=== PATIENT | female | born 1985 | race Caucasian/White ===

== ENCOUNTER → 2018-05-08 | Outpatient (REF) | payer BC | LOC: M LAB REF 17:18 | DX: R30.0 Dysuria (principal) | CPT/HCPCS: 87088; 87186 ==

== ENCOUNTER → 2018-07-17 | Outpatient (REF) | payer BC ==
[2018-07-17 21:09] LABS: HEMATOCRIT 37.2 % (36.0-47.0); HEMOGLOBIN 12.3 g/dl (12.0-15.5); MEAN CORPUSCULAR HEMOGLOBIN 28.8 pg (27.0-33.0); MEAN CORPUSCULAR HGB CONC 33.1 g/dl (32.0-36.5); MEAN CORPUSCULAR VOLUME 87.1 fl (80.0-96.0); PLATELET COUNT, AUTOMATED 331 10^3/uL (150-450); RED BLOOD COUNT 4.27 10^6/uL (4.00-5.40); WHITE BLOOD COUNT 9.7 10^3/uL (4.0-10.0)
[2018-07-18 10:37] LABS: HCG, SERUM QUANTITATIVE 19747 MIU/ML; HEPATITIS C VIRUS ABY INDEX 0.1 INDEX (<0.8); HIV 1&2 SCREEN CENTAUR NEGATIVE (NEGATIVE); RUBELLA IgG QUALITATIVE IMMUNE (IMMUNE)
== END ==
LOC: M LAB REF 16:46
PROVIDERS: ATTEND Obstetrics & Gynecology
DX: Z32.01 Encounter for pregnancy test, result positive (principal); O36.80X0 Pregnancy with inconclusive fetal viability, not applicable or unspecified

== ENCOUNTER 2018-10-12 07:00 | Day surgery (SDC) | payer BC ==
[~2018-10-12] VITALS: Ht 180.3 cm; Wt 93.0 kg
[~2018-10-12 07:00] MED LIST: PRENTAB55 PO
[2018-10-12 07:27] LABS: HEMATOCRIT 38.9 % (36.0-47.0); MEAN CORPUSCULAR HEMOGLOBIN 29.7 pg (27.0-33.0); MEAN CORPUSCULAR HGB CONC 33.4 g/dl (32.0-36.5); PLATELET COUNT, AUTOMATED 261 10^3/uL (150-450); RED BLOOD COUNT 4.37 10^6/uL (4.00-5.40); WHITE BLOOD COUNT 6.8 10^3/uL (4.0-10.0)
[2018-10-12] MEDS ORDERED: LR 1,000 ML IV ONE (07:30)
[2018-10-12] MEDS ORDERED: ceFAZolin SOD 1 GM in D5W MINI-BAG PLUS 50 ML IV ONE (07:30)
[2018-10-12] MEDS ORDERED: PROPOFOL 200 MG/20 ML VIAL As Ordered ONE (07:57)
[2018-10-12] MEDS ORDERED: fentaNYL 100 MCG/2 ML INJECTION (J3010) As Ordered ONE (07:57)
[2018-10-12] MEDS ORDERED: LIDOCAINE 2% INJ 100 MG/5 ML SDV (FOR ANES.) As Ordered ONE (07:57)
[2018-10-12] MEDS ORDERED: MIDAZOLAM INJ 2 MG/2 ML VIAL (J2250) As Ordered ONE (07:58)
[2018-10-12] MEDS ORDERED: LIDOCAINE W/EPINEPHRINE 1% 20ML VIAL As Ordered ONE (08:11)
[2018-10-12] MEDS ORDERED: dexameTHASONE 4 MG/ML 1ML VIAL (J1100) As Ordered ONE (08:30)
[2018-10-12] MEDS ORDERED: ACETAMINOPHEN 1000MG 100ML IV BTL (OFIRMEV) (J0131 PER 10MG) As Ordered ONE (08:31)
[2018-10-12] MEDS ORDERED: KETOROLAC 60 MG/2 ML VIAL (J1885) As Ordered ONE ×2 (08:39→09:13)
[2018-10-12] MEDS ORDERED: ONDANSETRON 4MG/2ML VIAL (J2405) As Ordered ONE (08:39)
[2018-10-12] MEDS ORDERED: METOCLOPRAMIDE INJ 10MG/2ML VIAL (J2765) As Ordered ONE (08:48)
[2018-10-12] MEDS ORDERED: OXYTOCIN INJ 10 UNITS/ML VIAL (J2590) As Ordered ONE ×2 (08:51→08:52)
[2018-10-12] MEDS ORDERED: METHYLERGONOVINE MALEATE 0.2 MG/ML VIAL (J2210) As Ordered ONE (08:52)
[2018-10-12] MEDS ORDERED: ePHEDrine SULFATE 25 MG/5 ML(5MG/ML) SYRINGE As Ordered ONE (09:00)
[2018-10-12] MEDS ORDERED: PERC5TAB12 PO (09:18)
[2018-10-12] MEDS ORDERED: IBUP80TA PO (09:18)
[2018-10-12] MEDS ORDERED: METH0.2T53 PO (09:18)
[2018-10-12] MEDS ORDERED: METHYLERGONOVINE MALEATE 0.2 MG/ML VIAL (J2210) IM ONE (09:45)
[2018-10-12] MEDS ORDERED: RHOGAM 300 MCG (1500 IU) INJ (J2790) IM ONE (09:45)
[2018-10-12] MEDS ORDERED: PERCOCET 5MG/325MG TAB PO PRN ×2 (09:45→10:00)
--- NOTE | 2018-10-12 09:51 | RO ---
DATE OF PROCEDURE: 10/12/2018 Ronel is a 33-year-old female 2, para 1 who is approximately 14 weeks gestation, was found to have missed on ultrasound. After counseling in the office, a decision was made to proceed with suction, dilatation and evacuation. PREOPERATIVE DIAGNOSIS: 1. Missed at 14 weeks. POSTOPERATIVE DIAGNOSES: 1. Missed at 14 weeks. 2. Necrotic products of conception. PROCEDURE: 1. Suction, dilatation and evacuation. ANESTHESIA: General. SURGEON: Dr. Donnie Wilson. COMPLICATIONS: None. ESTIMATED BLOOD LOSS: Approximately 600 mL. SPECIMEN SENT TO THE LAB: Products of conception as well as parts. 30 mL of Pitocin was placed in approximately 500 mL of normal saline and infused right after the D C. After obtaining informed consent, the patient was taken to the operating room where general anesthetic was found to be adequate. She was then draped and prepped in the usual sterile fashion in the dorsal lithotomy position. At this point, a straight catheter bladder was performed for approximately 110 mL of clear urine. We then placed a weighted speculum in the posterior fornix of the vagina. The patient was given Cytotec the night before the surgery. The cervix was found to be somewhat dilated. At this point, a 10 mm suction curette was inserted. The amniotic fluid as well as some membranes were removed. We then used a long, ring forceps and multiple products of conception as well as parts were removed. The suction device was reinserted and reactivated and cleared the debris. We then proceeded to do a sharp curettage of the endometrial lining. The suction device was reinserted and the endometrial cavity cleared. Pitocin was given to help with hemostasis. Good hemostasis noted. Fundal massage as well as bimanual massage was done. Good hemostasis noted. All instruments removed. The patient tolerated the procedure well. She was then transferred to recovery room in stable condition.
[2018-10-12] MEDS ORDERED: ONDANSETRON 4MG/2ML VIAL (J2405) IV PRN (10:00)
[2018-10-12] MEDS ORDERED: MEPERIDINE INJ 25 MG/ML VIAL (J2175) IV PRN (10:00)
[2018-10-12] MEDS ORDERED: LR 1,000 ML IV SCH (10:00)
[2018-10-12] MEDS ORDERED: METOCLOPRAMIDE INJ 10MG/2ML VIAL (J2765) IV PRN (10:00)
[2018-10-12] MEDS ORDERED: fentaNYL 100 MCG/2 ML INJECTION (J3010) IV PRN (10:00)
[2018-10-12 11:35] VITALS: BP 114/71
[2018-10-12] MEDS ORDERED: IBUPROFEN 800 MG TAB PO SCH (15:00)
== END 2018-10-12 12:05 | disposition home or self-care (01) ==
LOC: M SDC 07:00
PROVIDERS: ATTEND Obstetrics & Gynecology
DX: O02.1 Missed abortion (principal); Z88.7 Allergy status to serum and vaccine
CPT/HCPCS: 36415; 59820; 85027; 86850; 86900; 86901; 88305; J0131; J0690; J1100; J1885; J2210; J2250; J2405; J2590; J2765; J2790; J3010

== ENCOUNTER → 2019-03-21 | Outpatient (REF) | payer BC ==
[~2019-03-21] MED LIST changes: +IBUP80TA PO; +METH0.2T53 PO; +PERC5TAB12 PO
[2019-03-21 18:41] LABS: HEMATOCRIT 39.2 % (36.0-47.0); HEMOGLOBIN 13.1 g/dl (12.0-15.5); MEAN CORPUSCULAR HEMOGLOBIN 29.8 pg (27.0-33.0); MEAN CORPUSCULAR HGB CONC 33.4 g/dl (32.0-36.5); MEAN CORPUSCULAR VOLUME 89.1 fl (80.0-96.0); PLATELET COUNT, AUTOMATED 259 10^3/uL (150-450); WHITE BLOOD COUNT 9.1 10^3/uL (4.0-10.0)
[2019-03-21 21:40] LABS: HCG, SERUM QUANTITATIVE 8509 MIU/ML
[2019-03-22 10:17] LABS: RUBELLA IgG QUALITATIVE IMMUNE (IMMUNE)
[2019-03-22 10:46] LABS: HEPATITIS C VIRUS ABY INDEX 0.1 INDEX (<0.8)
[2019-03-22 10:49] LABS: HIV 1&2 SCREEN CENTAUR NEGATIVE (NEGATIVE)
== END ==
LOC: M LAB REF 16:40
PROVIDERS: ATTEND Obstetrics & Gynecology
DX: O36.80X0 Pregnancy with inconclusive fetal viability, not applicable or unspecified (principal)

== ENCOUNTER → 2019-04-17 | Outpatient (REF) | payer BC | LOC: M LAB REF 16:25 | PROVIDERS: ATTEND Obstetrics & Gynecology | DX: Z34.81 Encounter for supervision of other normal pregnancy, first trimester (principal); Z3A.00 Weeks of gestation of pregnancy not specified ==

== ENCOUNTER 2019-05-14 05:45 | Emergency (ER) | payer BC ==
[~2019-05-14] VITALS: Ht 180.3 cm; Wt 100.0 kg
[2019-05-14] MEDS ORDERED: ACETAMINOPHEN 325 MG TAB PO ONE (06:30)
[2019-05-14 06:49] LABS: BASO % 0.3 % (0.0-1.0); EOS # 0.1 10^3/uL (0.0-0.5); EOS % 0.9 % (0.0-3.0); HEMATOCRIT 36.9 % (36.0-47.0); HEMOGLOBIN 12.3 g/dl (12.0-15.5); LYMPH # 1.3 10^3/uL (1.5-5.0); LYMPH % 19.5 % (24.0-44.0); MEAN CORPUSCULAR HEMOGLOBIN 29.4 pg (27.0-33.0); MEAN CORPUSCULAR HGB CONC 33.3 g/dl (32.0-36.5); MEAN CORPUSCULAR VOLUME 88.3 fl (80.0-96.0); MONO # 0.5 10^3/uL (0.0-0.8); MONO % 6.7 % (0.0-5.0); NEUTROPHILS # 4.9 10^3/uL (1.5-8.5); NEUTROPHILS % 72.3 % (36.0-66.0); PLATELET COUNT, AUTOMATED 256 10^3/uL (150-450); RED BLOOD COUNT 4.18 10^6/uL (4.00-5.40); WHITE BLOOD COUNT 6.8 10^3/uL (4.0-10.0)
--- NOTE | 2019-05-14 07:01 | REPVR ---
PROCEDURE INFORMATION: Exam: US First Trimester, Transabdominal and US Duplex Artery or Vein, Ovaries, Limited Exam date and time: 05/14/2019 6:38 AM Clinical history: 34 years old, female; Lmp or gestational age (in weeks): 02/15/19; Antepartum complications; Bleeding; ; Additional info: Vaginal bleeding TECHNIQUE: Imaging protocol: Real-time transabdominal obstetrical ultrasound of the maternal pelvis and a first trimester , less than 14 weeks 0 days, with image documentation. Real-time duplex ultrasound scan of the arterial or venous flow of the ovaries with B-mode, color Doppler flow and spectral waveform analysis, limited Duplex. COMPARISON: No relevant prior studies available. FINDINGS: GESTATION: Gestation: Intrauterine gestational sac is seen. Single live intrauterine fetus is seen. Heart rate: heart rate is detected at 165 beats per minutes. Placenta: Heterogeneous hypoechogenicities seen surrounding the gestational sac, one anterior measuring 4.1 x 6.2 x 1.3 cm and one posterior measuring 3.8 x 2.4 x 1.4 cm.. Amniotic fluid: Amniotic and chorionic fluid are normal for gestational age. BIOMETRY: Estimated gestational age: The estimated age is 14 weeks. Fajardo-Rump length: The crown-rump length measures 7.7 cm corresponding to 13 weeks and 5 day gestation (95th percentile. Biparietal diameter: The biparietal diameter measures 2.3 cm corresponding to 13 weeks and 6 days gestation (90th percentile). Head circumference: The head circumference measures 9.2 cm corresponding to 14 weeks and 1 day gestation (94th percentile). Abdominal circumference: The abdominal circumference measures 7.64 cm corresponding to 14 days in 1 day gestation (96th percentile). Femur length: The femur length measures 1.32 cm corresponding to 13 weeks and 6 days gestation (91st percentile). MATERNAL: Uterus: Unremarkable. Cervix: The cervix appears to be foreshortened at 1.6 cm however this is likely due to angulation and measurement. The endocervical canal is closed. Right adnexa: The right ovary measures 3.3 x 3.2 x 3.4 cm with arterial blood flow seen. Right ovarian peak systolic velocity measures 20.7 cm/s with resistive index of 0.63. Left adnexa: The left ovary measures 3.2 x 3.4 x 1.9 cm with arterial blood flow seen. Left ovarian peak systolic velocity measures 22.6 cm/s with resistive index of 0.48. Intraperitoneal: No intraperitoneal free fluid. IMPRESSION: 1. Single live intrauterine gestation corresponding to 14 weeks gestation. 2. 2 areas of subchorionic hemorrhage measuring up to 6.2 cm anteriorly and 3.8 cm posteriorly as described above. Followup is recommended. 3. Apparently foreshortened cervix felt to be due to angulation and under measurement. Endocervical canal is closed. Followup is recommended. Electronically signed by: Francisco Javier Moseley On 05/14/2019 07:01:22 AM
[2019-05-14 07:32] LABS: BLOOD UREA NITROGEN 8 MG/DL (7-18); CALCIUM LEVEL 9.4 MG/DL (8.5-10.1); CARBON DIOXIDE LEVEL 23 MEQ/L (21-32); CHLORIDE LEVEL 107 MEQ/L (98-107); GLOMERULAR FILTRATION RATE > 60.0 (>60); GLUCOSE, FASTING 92 MG/DL (70-100); HCG, SERUM QUANTITATIVE 35479 MIU/ML; POTASSIUM SERUM 3.9 MEQ/L (3.5-5.1); SODIUM LEVEL 139 MEQ/L (136-145)
[2019-05-14] MEDS ORDERED: RHOGAM 300 MCG (1500 IU) INJ (J2790) IM ONE (09:30)
--- NOTE | 2019-05-14 10:06 | ED PDOC ---
Post-Departure Follow-Up radiology report faxed to Dr. Acevedo/Karma Joya MD May 14, 2019 10:06
[2019-05-14 10:22] VITALS: BP 105/64
== END 2019-05-14 10:29 | disposition home or self-care (01) ==
LOC: M ED 05:45
DX: O20.8 Other hemorrhage in early pregnancy (principal); O26.891 Other specified pregnancy related conditions, first trimester; M54.5 Low back pain; Z3A.12 12 weeks gestation of pregnancy; Z88.7 Allergy status to serum and vaccine
CPT/HCPCS: 36415; 76801; 80048; 81001; 84702; 85025; 86850; 86900; 86901; 87210; 93976; 96372; 99284; J2790

== ENCOUNTER → 2019-08-20 | Outpatient (CLI) | payer BC ==
[2019-08-20 10:54] LABS: HEMATOCRIT 33.2 % (36.0-47.0); HEMOGLOBIN 11.1 g/dl (12.0-15.5); MEAN CORPUSCULAR HEMOGLOBIN 30.2 pg (27.0-33.0); MEAN CORPUSCULAR HGB CONC 33.4 g/dl (32.0-36.5); MEAN CORPUSCULAR VOLUME 90.2 fl (80.0-96.0); PLATELET COUNT, AUTOMATED 243 10^3/uL (150-450); RED BLOOD COUNT 3.68 10^6/uL (4.00-5.40); WHITE BLOOD COUNT 9.6 10^3/uL (4.0-10.0)
== END ==
LOC: M LAB 08:25
PROVIDERS: ATTEND Obstetrics & Gynecology
DX: Z34.82 Encounter for supervision of other normal pregnancy, second trimester (principal)

== ENCOUNTER 2019-09-07 08:00 | Outpatient (CLI) | payer BC ==
[~2019-09-07] VITALS: Ht 180.3 cm; Wt 107.0 kg
[2019-09-07 08:19] VITALS: BP 99/54
[2019-09-07] MEDS ORDERED: MAPA500T2 PO (08:29)
[2019-09-07] MEDS ORDERED: PEPC10TA6 PO (08:30)
[2019-09-07] MEDS ORDERED: TUMS500C PO (08:30)
[2019-09-07] MEDS ORDERED: LACTATED RINGER'S 1000 ML IV STA (08:46)
[2019-09-07] MEDS ORDERED: LR 1,000 ML IV SCH (09:00)
[2019-09-07 09:19] LABS: HEMATOCRIT 30.4 % (36.0-47.0); HEMOGLOBIN 10.5 g/dl (12.0-15.5); MEAN CORPUSCULAR HEMOGLOBIN 30.5 pg (27.0-33.0); MEAN CORPUSCULAR HGB CONC 34.5 g/dl (32.0-36.5); MEAN CORPUSCULAR VOLUME 88.4 fl (80.0-96.0); PLATELET COUNT, AUTOMATED 163 10^3/uL (150-450); RED BLOOD COUNT 3.44 10^6/uL (4.00-5.40); WHITE BLOOD COUNT 24.1 10^3/uL (4.0-10.0)
[2019-09-07] MEDS ORDERED: PERCOCET 5MG/325MG TAB PO ONE (09:45)
[2019-09-07 09:49] VITALS: BP 112/61
[2019-09-07 09:50] LABS: INFLUENZA A AMPLIFICATION NEGATIVE (NEGATIVE); INFLUENZA B AMPLIFICATION NEGATIVE (NEGATIVE)
[2019-09-07 10:06] LABS: APPEARANCE, URINE CLEAR (CLEAR); BACTERIA, URINE AUTO 1+ (NEGATIVE); BILIRUBIN, URINE AUTO NEGATIVE (NEGATIVE); BLOOD, URINE BLOOD 1+ (NEGATIVE); COLOR, URINE YELLOW (YELLOW); GLUCOSE, URINE (UA) AUTO 1+ mg/dL (NEGATIVE); KETONE, URINE AUTO 2+ mg/dL (NEGATIVE); LEUKOCYTE ESTERASE, URINE AUTO TRACE (NEGATIVE); MUCUS, URINE SMALL (NEGATIVE); NITRITE, URINE AUTO NEGATIVE (NEGATIVE); PROTEIN, URINE AUTO 1+ mg/dL (NEGATIVE); RBC, URINE AUTO 4 /HPF (0-3); SPECIFIC GRAVITY URINE AUTO 1.013 (1.002-1.035); SQUAMOUS EPITHELIAL CELL UR AU 2 /HPF (0-6); UROBILINOGEN, URINE AUTO 0.2 mg/dL (0.0-2.0); WBC, URINE AUTO 9 /HPF (0-3)
[2019-09-07 10:15] LABS: ALBUMIN 2.6 GM/DL (3.2-5.2); ALT/SGPT 19 U/L (12-78); BILIRUBIN,TOTAL 0.8 MG/DL (0.2-1.0); BLOOD UREA NITROGEN 3 MG/DL (7-18); CALCIUM LEVEL 8.2 MG/DL (8.5-10.1); CARBON DIOXIDE LEVEL 18 MEQ/L (21-32); CHLORIDE LEVEL 108 MEQ/L (98-107); CREATININE FOR GFR 0.59 MG/DL (0.55-1.30); GLOMERULAR FILTRATION RATE > 60.0 (>60); GLUCOSE, FASTING 106 MG/DL (70-100); POTASSIUM SERUM 2.9 MEQ/L (3.5-5.1); SODIUM LEVEL 137 MEQ/L (136-145); TOTAL PROTEIN 5.8 GM/DL (6.4-8.2)
[2019-09-07 10:42] VITALS: BP 116/55
[2019-09-07] MEDS ORDERED: KCL 10MEQ/100ML SWI (KRUN) 10 MEQ in IV 1 EA IV ONE (12:00)
[2019-09-07 12:11] VITALS: BP 116/55
[2019-09-07] MEDS ORDERED: ceFAZolin SOD 2 GM in IV 1 EA IV ONE (13:00)
[2019-09-07 13:39] VITALS: BP 111/64
[2019-09-07] MEDS ORDERED: PHENAZOPYRIDINE 100 MG TAB As Ordered ONE (14:02)
[2019-09-07] MEDS ORDERED: NITR-67 PO (14:10)
[2019-09-07] MEDS ORDERED: PHEN-593 PO (14:35)
[2019-09-07] MEDS ORDERED: OXYC1TAB23 PO (14:35)
[2019-09-07] MEDS ORDERED: PHENAZOPYRIDINE 100 MG TAB PO ONE (15:00)
[2019-09-07 15:04] VITALS: BP 124/83
--- NOTE | 2019-09-07 15:09 | IPN ---
DATE OF EVALUATION: 09/07/2019 34-year-old, (G) 3, para (P) 1 female, 29 weeks gestation, presents with throbbing in her lower pelvis since 10:30 p.m. the evening before evaluation. She had fevers to 103 at home. She had to urinate frequently up to six times an hour. Pain wrapped around to her lower back. OBJECTIVE: Blood pressure 116/55, pulse 101, temperature 99.3. No apparent distress. Head and neck exam, normal. Lungs clear. Heart: Regular rate and rhythm. Abdomen: Nontender, gravid. heart tones category 1. Contractions, none. LABS: Show white count 24.1. Urine shows 1+ blood, trace leukocyte esterase, multiple white blood cells. ASSESSMENT: 34-year-old, (G) 3, para (P) 1 at 29 weeks presents with a probable urinary tract infection. PLAN: Patient is given a dose of intravenous (IV) Ancef. She was sent home on Macrobid to finish a 7-day course. Urine culture was sent. Patient received potassium for hypokalemia. She was also given Pyridium and a small number of Percocet to help with discomfort. She will followup with Dr. Wilson.
== END 2019-09-07 15:20 | disposition home or self-care (01) ==
LOC: M LDO 08:00
PROVIDERS: ATTEND Specialist
DX: O99.280 Endocrine, nutritional and metabolic diseases complicating pregnancy, unspecified trimester (principal); E87.6 Hypokalemia; O99.89 Other specified diseases and conditions complicating pregnancy, childbirth and the puerperium; R10.2 Pelvic and perineal pain; Z3A.29 29 weeks gestation of pregnancy; Z88.1 Allergy status to other antibiotic agents; Z88.7 Allergy status to serum and vaccine; Z88.8 Allergy status to other drugs, medicaments and biological substances
CPT/HCPCS: 59025; 80053; 81001; 85027; 87086; 87502; 96374; 96375; G0378; G0463; J0690

== ENCOUNTER 2019-09-08 11:25 | Inpatient (IN) | payer BC ==
[~2019-09-08] VITALS: Ht 180.3 cm; Wt 108.0 kg
[2019-09-08] VITALS (52 sets, daily range): BP systolic 81–156; BP diastolic 50–84
[~2019-09-08 11:25] MED LIST changes: +MAPA500T2 PO; +NITR-67 PO; +OXYC1TAB23 PO; +PEPC10TA6 PO; +PHEN-593 PO; +TUMS500C PO
[2019-09-08 12:17] LABS: ABG BASE EXCESS -4.8 (-2.0-2.0); ABG HCO3 16.5 MEQ/L (22.0-26.0); ABG O2 SATURATION 97.1 % (95.0-99.0); ABG PARTIAL PRESSURE CO2 23.6 mmHg (35.0-45.0); ABG PARTIAL PRESSURE O2 93.8 mmHg (75.0-100.0); ABG STANDARD HCO3 20.5 MEQ/L (22.0-26.0); ABG TOTAL CO2 17.2 MEQ/L (22.0-29.0); ABG pH (ARTERIAL) 7.473 UNITS (7.350-7.450)
[2019-09-08 12:28] LABS: BASO % 0.1 % (0.0-1.0); HEMATOCRIT 31.9 % (36.0-47.0); HEMOGLOBIN 10.9 g/dl (12.0-15.5); LYMPH # 0.4 10^3/uL (1.5-5.0); LYMPH % 2.5 % (24.0-44.0); MEAN CORPUSCULAR HEMOGLOBIN 30.1 pg (27.0-33.0); MEAN CORPUSCULAR HGB CONC 34.2 g/dl (32.0-36.5); MEAN CORPUSCULAR VOLUME 88.1 fl (80.0-96.0); MONO # 0.4 10^3/uL (0.0-0.8); MONO % 2.2 % (0.0-5.0); NEUTROPHILS # 15.2 10^3/uL (1.5-8.5); NEUTROPHILS % 93.8 % (36.0-66.0); PLATELET COUNT, AUTOMATED 173 10^3/uL (150-450); RED BLOOD COUNT 3.62 10^6/uL (4.00-5.40); WHITE BLOOD COUNT 16.2 10^3/uL (4.0-10.0)
[2019-09-08] MEDS ORDERED: SODIUM CHLORIDE 0.9% 1000ML IV SCH (12:30)
[2019-09-08] MEDS ORDERED: ACETAMINOPHEN 500 MG TAB As Ordered ONE (12:31)
[2019-09-08] MEDS ORDERED: ACETAMINOPHEN 500 MG TAB PO ONE (12:45)
[2019-09-08 12:48] LABS: ERYTHROCYTE SEDIMENTATION RATE 63 mm/hr (0-20)
[2019-09-08 12:58] LABS: ALBUMIN 2.4 GM/DL (3.2-5.2); ALT/SGPT 15 U/L (12-78); BILIRUBIN,TOTAL 0.5 MG/DL (0.2-1.0); BLOOD UREA NITROGEN 4 MG/DL (7-18); CALCIUM LEVEL 8.2 MG/DL (8.5-10.1); CARBON DIOXIDE LEVEL 20 MEQ/L (21-32); CHLORIDE LEVEL 103 MEQ/L (98-107); CREATININE FOR GFR 0.74 MG/DL (0.55-1.30); GLOMERULAR FILTRATION RATE > 60.0 (>60); GLUCOSE, FASTING 92 MG/DL (70-100); POTASSIUM SERUM 3.1 MEQ/L (3.5-5.1); SODIUM LEVEL 131 MEQ/L (136-145); TOTAL PROTEIN 5.5 GM/DL (6.4-8.2)
[2019-09-08] MEDS: MEROPENEM INJ 1 GM in IV 1 EA IV SCH ×2 (13:06→20:54)
--- NOTE | 2019-09-08 13:44 | CR.PDOC ---
General Date of Consultation: Sep 08, 2019 Consultation REASON FOR CONSULTATION/CHIEF COMPLAINT: Presumed sepsis. HISTORY OF PRESENT ILLNESS: 34-year-old female with no significant past medical history who is currently 29 weeks is admitted to labor and delivery for fever and chills. Patient presented last night with fever, chills, increased urinary frequency, cough, nausea and vomiting. Patient's UA looked concerning for infection, presumed to have UTI and treated with first generation cephalosporin, admitted for observation overnight. Patient remains febrile in the morning along with tachycardia and elevated white cell count, hospitalist service requested for medical recommendations/management. Patient reports having cough for the past 2 days, nonproductive, with associated shortness of breath, has kids, flu is rampant at school, even though patient's daughter does not have any signs of infection. She denies any other sick contacts. Sepsis protocol has been initiated including IV fluid bolus, broad-spectrum antibiotic coverage and septic labs. 10 point review of system is negative except for above ALLERGIES: Please see below. HOME MEDICATIONS: Please see below. PAST MEDICAL HISTORY: 1. None. PAST SURGICAL HISTORY: 1. Bladder surgery FAMILY HISTORY: Mother had breast cancer SOCIAL HISTORY: Denies smoking. No alcohol since this started. Denies drug use PHYSICAL EXAMINATION: VITAL SIGNS: Please see below. GENERAL: Mild discomfort HEENT: Normocephalic, atraumatic, moist mucous membranes NECK: Supple CARDIOVASCULAR EXAMINATION: S1, S2, tachycardic RESPIRATORY EXAMINATION: Mild basilar rhonchi, no wheezing ABDOMINAL EXAMINATION: Soft, nontender, nondistended, abdomen with heart monitor, positive bowel sounds EXTREMITIES: Range of motion intact SKIN: No rash NEUROLOGICAL EXAMINATION: Alert and oriented 3, no focal deficits PSYCHIATRIC EXAMINATION: Calm and cooperative LABORATORY DATA: Please see below. ASSESSMENT/PLAN: 34-year-old female with no past medical history currently 29 weeks admitted for sepsis. 1. Sepsis Patient febrile, tachycardic and tachypneic, initially thought to have UTI, current clinical picture suggests a respiratory etiology, flu negative yesterday, respiratory viral panel ordered, chest x-ray without infiltrate, continue broad-spectrum antibiotics, IV hydration, blood and urine cultures pending 2. 29 weeks gestation. Management as per primary team Laboratory Data Labs 24H Laboratory Tests 2 09/08/19 12:06: Blood Gas Bicarbonate Standard 20.5L, Arterial Blood pH 7.473H, Arterial Blood Partial Pressure CO2 23.6L, Arterial Blood Partial Pressure O2 93.8, Arterial Bl ood Total CO2 17.2L, Arterial Blood HCO3 16.5L, Arterial Blood Base Excess - 4.8L, Arterial Blood Oxygen Saturation 97.1 09/08/19 12:07: Anion Gap 8, Glomerular Filtration Rate > 60.0, Calcium Level 8.2L, Total Bilirubin 0.5, Aspartate Amino Transf (AST/SGOT) 20, Alanine Aminotransferase (ALT/SGPT) 15, Alkaline Phosphatase 121H, Total Protein 5.5L, Albumin 2.4L, Albumin/Globulin Ratio 0.77L 09/08/19 12:11: Immature Granulocyte % (Auto) 1.4, Neutrophils (%) (Auto) 93.8H, Lymphocytes (%) (Auto) 2.5L, Monocytes (%) (Auto) 2.2, Eosinophils (%) (Auto) 0.0, Basophils (%) (Auto) 0.1, Neutrophils # (Auto) 15.2H, Lymphocytes # (Auto) 0.4L, Monocytes # (Auto) 0.4, Eosinophils # (Auto) 0.0, Basophils # (Auto) 0.0, Nucleated Red Blood Cells % (auto) 0.0, Erythrocyte Sedimentation Rate 63H, Central Line Venous O2 Saturation 96.8, Lactic Acid Level 1.6 CBC/BMP Laboratory Tests 09/08/19 12:07 09/08/19 12:11 Microbiology Microbiology 09/08/19 Blood Culture, Received Pending 09/08/19 Blood Culture, Received Pending Allergies Coded Allergies: diphtheria, pertussis, tetanus vacc (Verified Allergy, Unknown, 09/07/19) HALLUCINATIONS AND HIVES diphtheria,pertussis (acellular),te (Verified Allergy, Unknown, 05/14/19) Home Medications Scheduled Nitrofurantoin Macrocrystal (Nitrofurantoin) 100 Mg Capsule, 1 CAP PO BID for 7 Days, #14 Phenazopyridine HCl (Phenazopyridine HCl) 100 Mg Tablet, 1 TAB PO TID for urinary discomfort for 2 Days, #6 [id number]/Iron Fum/Folic/Docusate ( 19 Tablet) 1 Tab Tab, 1 TAB PO DAILY, (Reported) Scheduled PRN Acetaminophen (Mapap) 500 Mg Tablet, 1,000 MG PO Q6HP PRN for DISCOMFORT, (Reported) Calcium Carbonate (Tums) 200 Mg Tab.chew, 2 TABS PO Q6HP PRN for INDIGESTION, (Reported) Famotidine (Pepcid AC) 10 Mg Tablet, 1 TAB PO DAILYPRN PRN for INDIGESTION for 30 Days, #30 (Reported) Oxycodone HCl/Acetaminophen (Oxycodone-Acetaminophen 5-325) 1 Each Tablet, 1 TAB PO TIDP PRN for pain for 3 Days, #9 GRECIA VALDEZ MD Sep 08, 2019 13:44
--- NOTE | 2019-09-08 13:55 | REP ---
CHEST: Single view. There is no evidence of acute infiltrate. No pleural effusion is seen. The heart is normal in size. The mediastinal silhouette is unremarkable. The visualized osseous structures are intact. No central venous catheter is visualized. IMPRESSION: No acute pulmonary disease. Electronically Signed by Tuan Delcid MD 09/08/2019 06:39 P
[2019-09-08] MEDS: POTASSIUM CHLORIDE 10 MEQ SR TABLET PO SCH ×2 (14:09→17:39)
[2019-09-08] MEDS: VANCOMYCIN HCL 1,000 MG, VIAL MATE ADAPTER 1 EACH in D5W 250 ML IV SCH ×3 (14:14→21:42)
[2019-09-08] MEDS: NS 1,000 ML IV SCH ×2 (14:15→20:54)
[2019-09-08] MEDS ORDERED: FAMOTIDINE 20 MG TAB PO ONE (15:00)
[2019-09-08] MEDS: ACETAMINOPHEN 500 MG TAB PO PRN (17:42)
[2019-09-08] MEDS: CALCIUM CARBONATE 500 MG CHEW U/D PO PRN (19:15)
--- NOTE | 2019-09-08 20:44 | HPE ---
DATE OF ADMISSION: 09/08/2019 A 33-year-old G3, P1-0-1-1 female at 29-2/7 weeks gestation by last menstrual period (LMP) consistent with 8-week ultrasound, estimated date of confinement (EDC) of 11/22/2019, presents with fever as high as 105 Fahrenheit at home. Fevers began approximately 36 hours prior to presentation. The fevers were intermittent. She had frequency of urination as well as spasms in her lower pelvis. She had pain in her lower pelvis that radiated to her lower back. She denies vomiting, but had some nausea. She has no diarrhea. There are no sick contacts. She has no headache. She will take Tylenol to help with the fevers. She was seen in Triage the previous day and diagnosed with a possible urinary tract infection, given a dose of intravenous (IV) Ancef. OBSTETRICAL HISTORY: 1. 06/2013: Vaginal delivery, 7 pound 10 ounce , no complications. 2. October 2018: Intrauterine demise at 14 weeks. MEDICAL HISTORY: None. SURGICAL HISTORY: 1. Tonsillectomy 1991. 2. hydrodistention of the bladder 2009. 3. Dilation and curettage (D C) procedure 2018. ALLERGIES: DIPHTHERIA/PERTUSSIS/TETANUS(DPT) VACCINE. SOCIAL HISTORY: The patient lives in [place]. The father of the baby is involved. She denies cigarettes, alcohol or drug use. FAMILY HISTORY: Noncontributory. PHYSICAL EXAMINATION: Blood pressure 110/60, pulse 123, temperature of 102.2. The patient appears uncomfortable with shaking chills. HEAD AND NECK EXAM: Normal. LUNGS: Clear to auscultation. HEART: Regular rhythm, but tachycardic. ABDOMEN: Soft, nontender, gravid. HEART TONES: 170-180 beats per minute. No contractions. No costovertebral angle (CVA) tenderness. EXTREMITIES: Nontender. ASSESSMENT: A 34-year-old G3, P1 female at 29-2/7 weeks gestation with fevers, chills, with concern for possible sepsis. PLAN: Will initiate sepsis protocol. Patient will be admitted. Will draw blood cultures as per protocol, initiate antibiotic treatment. The patient will require monitoring during this process. STEPHANIE
[2019-09-08] MEDS ORDERED: IBUPROFEN 800 MG TAB As Ordered ONE (22:07)
[2019-09-08] MEDS ORDERED: IBUPROFEN 800 MG TAB PO ONE (22:15)
[2019-09-09] VITALS (47 sets, daily range): BP systolic 91–132; BP diastolic 54–84
[2019-09-09] MEDS: CALCIUM CARBONATE 500 MG CHEW U/D PO PRN ×4 (02:19→18:27)
[2019-09-09] MEDS: MEROPENEM INJ 1 GM in IV 1 EA IV SCH (04:53)
[2019-09-09] MEDS: VANCOMYCIN HCL 1,000 MG, VIAL MATE ADAPTER 1 EACH in D5W 250 ML IV SCH (05:57)
[2019-09-09 06:39] LABS: HEMATOCRIT 33.2 % (36.0-47.0); HEMOGLOBIN 11.2 g/dl (12.0-15.5); MEAN CORPUSCULAR HEMOGLOBIN 29.8 pg (27.0-33.0); MEAN CORPUSCULAR HGB CONC 33.7 g/dl (32.0-36.5); MEAN CORPUSCULAR VOLUME 88.3 fl (80.0-96.0); PLATELET COUNT, AUTOMATED 152 10^3/uL (150-450); RED BLOOD COUNT 3.76 10^6/uL (4.00-5.40); WHITE BLOOD COUNT 10.3 10^3/uL (4.0-10.0)
[2019-09-09 07:12] LABS: ALBUMIN 2.1 GM/DL (3.2-5.2); ALT/SGPT 17 U/L (12-78); BILIRUBIN,TOTAL 0.6 MG/DL (0.2-1.0); BLOOD UREA NITROGEN 5 MG/DL (7-18); CALCIUM LEVEL 8.4 MG/DL (8.5-10.1); CARBON DIOXIDE LEVEL 18 MEQ/L (21-32); CHLORIDE LEVEL 111 MEQ/L (98-107); CREATININE FOR GFR 0.57 MG/DL (0.55-1.30); GLOMERULAR FILTRATION RATE > 60.0 (>60); GLUCOSE, FASTING 106 MG/DL (70-100); PHOSPHORUS LEVEL 2.8 MG/DL (2.5-4.9); POTASSIUM SERUM 3.5 MEQ/L (3.5-5.1); SODIUM LEVEL 135 MEQ/L (136-145); TOTAL PROTEIN 5.1 GM/DL (6.4-8.2)
[2019-09-09] MEDS: NS 1,000 ML IV SCH (08:24)
[2019-09-09] MEDS: FAMOTIDINE 20 MG TAB PO SCH (08:59)
[2019-09-09] MEDS ORDERED: POTASSIUM CHLORIDE 10 MEQ SR TABLET PO ONE (09:00)
[2019-09-09] MEDS: cefTRIAXone SOD 2 GM in D5W MINI-BAG PLUS 50 ML IV SCH (12:25)
[2019-09-09] MEDS ORDERED: VANCOMYCIN HCL 1,000 MG, VIAL MATE ADAPTER 1 EACH in D5W 250 ML IV SCH ×2 (14:00→18:00)
--- NOTE | 2019-09-09 14:39 | PHACANCOPD ---
PHARMACY VANCOMYCIN DOSING Pt Demographics Demographics Patient Age:34 , Weight:108.000 , Gender: female Adjusted Body Weight Date: 09/09/19, Adjusted Body Weight: Kg Events Past 24 Hours Events Past 24 Hours: YES: Fever, Elevation in WBC Vancomycin Vancomycin Load Y/N: Yes Load Dose Date Time Vancomycin Load Dose: 2 GM Date:09/08/19 Time: 1400 Vancomycin Dose Date: 09/09/19. Current Vancomycin Dose: [1250 MG IV Q8H @15] Date: 09/08/19. Current Vancomycin Dose: [1 GM IV Q8H @ 22] Intermittent Dosing?: No Labs Labs Item Value Date Time White Blood Count 16.2 10^3/uL H 09/08/19 1211 White Blood Count 10.3 10^3/uL H 09/09/19 0628 Erythrocyte Sedimentation Rate 63 mm/hr H 09/08/19 1211 Micro Microbiology 09/08/19 Respiratory Virus Panel (PCR) ([facility]) - Final, Complete 09/08/19 Blood Culture - Preliminary, Resulted 09/08/19 Blood Culture - Preliminary, Resulted No growth after 24 hours . All specim... Creatinine Clearance Date:09/09/19. Creatinine Clearance: . Assessment and Plan Maintaining Current Dose?: No Reason for dose change: Trough too low Pharmacist Note Pharmacist Note Date: 09/09/19. Pharmacist note: Pharmacy consulted for Vancomycin dosing due to Prelim BC Gram + Cocci x 1 with a goal trough of 15-20 mcg/ml. Patient has no history of Vanco or MRSA here at [facility]. She is concurrently being treated with Rocephin 2 gm IV q24h. She was loaded with 2 grams on 09/07 and followed with 1 gm IV q8h. Trough drawn today @ 1318 resulted at 9.6. We'll increase to 1250 mg IV q8h, pharmacy will continue to monitor and make adjustments as needed [facility] Sep 09, 2019 14:39
[2019-09-09] MEDS: VANCOMYCIN HCL 750 MG, VIAL MATE ADAPTER 1 EACH in D5W 250 ML IV SCH ×2 (15:36→23:02)
[2019-09-09] MEDS: VANCOMYCIN HCL 500 MG in D5W MINI-BAG PLUS 100 ML IV SCH (17:14)
--- NOTE | 2019-09-09 17:28 | REP ---
OB ULTRASOUND: Real-time sonographic evaluation of the gravid uterus performed. There is a single living intrauterine gestation. Estimated gestational age 30 weeks 6 days, based on the first ultrasound, EDC 11/12/2019. Today's measurements indicate appropriate growth. BPD 80 mm = 32 weeks 1 day, 69th percentile HC 290 mm = 32 weeks 0 days, 67th percentile AC 289 mm = 32 weeks 6 days, 81st percentile FL 64 mm = 33 weeks 0 days, 84th percentile HC/AC ratio 1.0 within normal range. Estimated weight 2480 grams, 86th percentile. Cervix is closed and measures 3.5 cm in length. heart rate 153 beats per minute. Amniotic fluid within normal limits, JYOTSNA 14.9, within normal range of 8.8 to 23.7. Biophysical profile score 8/8. S/D ratio 3.18, within normal range of 2.5 to 3.5. RI 0.67, within normal range of 0.59 to 0.75. Visualized anatomy today includes lateral ventricles, stomach, three vessel cord, kidneys and bladder which are all grossly unremarkable. position vertex. Placenta is fundal and grade 2 with no previa or abruption. Electronically Signed by Tuan Delcid MD 09/10/2019 07:49 P
[2019-09-09] MEDS: ACETAMINOPHEN 500 MG TAB PO PRN (20:24)
--- NOTE | 2019-09-09 20:36 | IPNPDOC ---
Date Seen The patient was seen on 09/09/19. Progress Note SUBJECTIVE: 34-year-old female with no significant past medical history who is currently 29 weeks is admitted to labor and delivery for fever and chills. Patient presented last night with fever, chills, increased urinary frequency, cough, nausea and vomiting. Patient's UA looked concerning for infection, presumed to have UTI and treated with first generation cephalosporin, admitted for observation overnight. Patient remains febrile in the morning along with tachycardia and elevated white cell count, hospitalist service requested for medical recommendations/management. Patient reports having cough for the past 2 days, nonproductive, with associated shortness of breath, has kids, flu is rampant at school, even though patient's daughter does not have any signs of infection. She denies any other sick contacts. Sepsis protocol has been initiated including IV fluid bolus, broad-spectrum antibiotic coverage and septic labs. 09/09/19 Patient reports improvement from yesterday, resting comfortably in bed, tolerating diet, no new complaints. 1/2 cultures preliminary growing G+ cocci in clusters. 10 point review of system is negative except for above PHYSICAL EXAMINATION: VITAL SIGNS: Please see below. GENERAL: No distress HEENT: Normocephalic, atraumatic, moist mucous membranes NECK: Supple CARDIOVASCULAR EXAMINATION: S1, S2, no murmurs RESPIRATORY EXAMINATION: clear to auscultation ABDOMINAL EXAMINATION: Soft, nontender, nondistended, abdomen with heart monitor, positive bowel sounds EXTREMITIES: Range of motion intact SKIN: No rash NEUROLOGICAL EXAMINATION: Alert and oriented 3, no focal deficits PSYCHIATRIC EXAMINATION: Calm and cooperative LABORATORY DATA: Please see below. ASSESSMENT/PLAN: 34-year-old female with no past medical history currently 29 weeks admitted for sepsis. 1. ?Bacteremia 1/2 blood cultures positive for G+ cocci in clusters, ?contamination although patient appeared septic yesterday, repeat blood cultures, TTE ordered, continue Vancomycin, switch Merrem to ceftriaxone, afebrile today, BP stabilized w/ IV hy dration, PO intake adequate, IV fluids discontinued, 2. 29 weeks gestation. Management as per primary team VS, I&O, 24H, Fishbone Vital Signs/I&O Vital Signs Date Time Temp Pulse Resp B/P (MAP) Pulse Ox O2 Delivery O2 Flow Rate FiO2 09/09/19 19:33 99.8 100 22 124/73 (90) 98 Room Air I&O- Last 24 Hours up to 6 AM 09/09/19 06:00 Intake Total 5055 ml Output Total 3075 ml Balance 1980 ml Laboratory Data 24H LABS Laboratory Tests 2 09/09/19 06:28: Nucleated Red Blood Cells % (auto) 0.0, Anion Gap 6L, Glomerular Filtration Rate > 60.0, Calcium Level 8.4L, Phosphorus Level 2.8, Total Bilirubin 0.6, Aspartate Amino Transf (AST/SGOT) 26, Alanine Aminotransferase (ALT/SGPT) 17, Alkaline Phosphatase 124H, Total Protein 5.1L, Albumin 2.1L, Albumin/Globulin Ratio 0.70L 09/09/19 13:18: Vancomycin Level Trough 9.6L CBC/BMP Laboratory Tests 09/09/19 06:28 Microbiology Microbiology 09/09/19 Blood Culture, Received Pending 09/09/19 Blood Culture, Received Pending 09/08/19 Respiratory Virus Panel (PCR) ([facility]) - Final, Complete 09/08/19 Blood Culture - Preliminary, Resulted 09/08/19 Blood Culture - Preliminary, Resulted No growth after 24 hours . All specim... GRECIA VALDEZ MD Sep 09, 2019 20:36
[2019-09-10] VITALS (13 sets, daily range): BP systolic 92–120; BP diastolic 55–88
[2019-09-10] MEDS: VANCOMYCIN HCL 500 MG in D5W MINI-BAG PLUS 100 ML IV SCH ×2 (00:13→08:11)
[2019-09-10] MEDS: CALCIUM CARBONATE 500 MG CHEW U/D PO PRN ×5 (02:37→22:39)
[2019-09-10] MEDS: SLF 3 ML SYR IV SCH ×2 (06:36→15:29)
[2019-09-10] MEDS: VANCOMYCIN HCL 750 MG, VIAL MATE ADAPTER 1 EACH in D5W 250 ML IV SCH ×3 (06:37→16:52)
[2019-09-10 06:42] LABS: HEMATOCRIT 34.1 % (36.0-47.0); HEMOGLOBIN 11.7 g/dl (12.0-15.5); MEAN CORPUSCULAR HEMOGLOBIN 29.8 pg (27.0-33.0); MEAN CORPUSCULAR HGB CONC 34.3 g/dl (32.0-36.5); PLATELET COUNT, AUTOMATED 196 10^3/uL (150-450); RED BLOOD COUNT 3.92 10^6/uL (4.00-5.40); WHITE BLOOD COUNT 11.1 10^3/uL (4.0-10.0)
[2019-09-10 07:00] LABS: BLOOD UREA NITROGEN 3 MG/DL (7-18); CALCIUM LEVEL 8.4 MG/DL (8.5-10.1); CARBON DIOXIDE LEVEL 19 MEQ/L (21-32); CHLORIDE LEVEL 111 MEQ/L (98-107); CREATININE FOR GFR 0.58 MG/DL (0.55-1.30); GLOMERULAR FILTRATION RATE > 60.0 (>60); GLUCOSE, FASTING 80 MG/DL (70-100); POTASSIUM SERUM 3.4 MEQ/L (3.5-5.1); SODIUM LEVEL 139 MEQ/L (136-145)
[2019-09-10] MEDS: FAMOTIDINE 20 MG TAB PO SCH (08:58)
[2019-09-10] MEDS ORDERED: POTASSIUM CHLORIDE 10 MEQ SR TABLET PO ONE (09:00)
[2019-09-10] MEDS: SLF 3 ML SYR IV PRN ×2 (09:27→18:42)
[2019-09-10] MEDS: cefTRIAXone SOD 2 GM in D5W MINI-BAG PLUS 50 ML IV SCH (12:03)
--- NOTE | 2019-09-10 15:26 | PHACANCOPD ---
PHARMACY VANCOMYCIN DOSING Pt Demographics Demographics Patient Age:34 , Weight:108.000 , Gender: female Adjusted Body Weight Date: 09/09/19, Adjusted Body Weight: Kg Events Past 24 Hours Events Past 24 Hours: NO: Dialysis, Diuretic Therapy, Change in CrCl, Fever, Elevation in WBC, Pending Diagnostics, Pending Procedures, Other Vancomycin Vancomycin Target Ranges: 15-20 mcg/ml Vancomycin Load Y/N: Yes Load Dose Date Time Vancomycin Load Dose: 2 GM Date:09/08/19 Time: 1400 Vancomycin Dose Date: 09/09/19. Current Vancomycin Dose: [1250 MG IV Q8H @15] Date: 09/08/19. Current Vancomycin Dose: [1 GM IV Q8H @ 22] Intermittent Dosing?: No Labs Labs Vital Signs Label Value Date Time Patient Temperature 97.9 degrees F 09/10/19 1422 Temperature Source Temporal 09/10/19 1422 Patient Temperature 98.3 degrees F 09/10/19 1202 Temperature Source Temporal 09/10/19 1202 Patient Temperature 98.9 degrees F 09/10/19 1005 Temperature Source Temporal 09/10/19 1005 Item Value Date Time White Blood Count 11.1 10^3/uL H 09/10/19 0629 White Blood Count 10.3 10^3/uL H 09/09/19 0628 White Blood Count 16.2 10^3/uL H 09/08/19 1211 Creatinine 0.74 MG/DL 09/08/19 1207 Creatinine 0.57 MG/DL 09/09/19 0628 Creatinine 0.58 MG/DL 09/10/19 0629 Vancomycin Level Trough 11.8 UG/ML 09/10/19 1408 Vancomycin Level Trough 9.6 UG/ML L 09/09/19 1318 Micro Microbiology 09/09/19 Blood Culture, Received Pending 09/09/19 Blood Culture, Received Pending 09/08/19 Respiratory Virus Panel (PCR) ([facility]) - Final, Complete 09/08/19 Blood Culture - Preliminary, Resulted 09/08/19 Blood Culture - Preliminary, Resulted No Growth after 48 hours. All Specime... Creatinine Clearance Date:09/09/19. Creatinine Clearance: . Assessment and Plan Maintaining Current Dose?: No Reason for dose change: Trough too low Pharmacist Note Pharmacist Note 09/10/19 : Trough resulted at 11.8mcg/ml. Increased dose to 1500mg q8h@1600. We will continue to monitor and adjust dose as needed. Date: 09/09/19. Pharmacist note: Pharmacy consulted for Vancomycin dosing due to Prelim BC Gram + Cocci x 1 with a goal trough of 15-20 mcg/ml. Patient has no history of Vanco or MRSA here at [facility]. She is concurrently being treated with Rocephin 2 gm IV q24h. She was loaded with 2 grams on 09/07 and followed with 1 gm IV q8h. Trough drawn today @ 1318 resulted at 9.6. We'll increase to 1250 mg IV q8h, pharmacy will continue to monitor and make adjustments as needed [facility] Sep 10, 2019 15:26
--- NOTE | 2019-09-10 16:28 | ECHO ---
DATE OF STUDY: 09/10/2019 REFERRING PHYSICIAN: Dr. Rg Whitlock INDICATION: Bacteremia. HEIGHT: 180 cm WEIGHT: 108 kg 2-D MEASUREMENTS: Ventricular septum: 0.94 cm Posterior wall: 0.82 cm Left ventricle diastole: 5.5 cm Aortic root: 3.0 cm Left atrium: 3.9 cm Left atrial volume index: 23 DOPPLER MEASUREMENTS: Aortic valve velocity: 145 cm/sec LVOT velocity: 123 cm/sec No aortic regurgitation Very mild mitral regurgitation Very mild tricuspid regurgitation Trace pulmonic regurgitation Mitral E velocity: 93.0 cm/sec Mitral A velocity: 60.0 cm/sec Mitral deceleration time: 119 ms Estimate right ventricle systolic pressure: 25-30 mmHg assuming an atrial pressure of 5-10 mmHg Pulmonary acceleration time: 121 ms (normal) MITRAL ANNULAR TISSUE DOPPLER E prime lateral: 10.4 cm/sec DESCRIPTION: The rhythm was sinus. No pericardial effusion. Image quality was adequate. This was a 2-D, M-mode, color flow Doppler and pulsed wave Doppler examination and included mitral annular tissue Doppler. CONCLUSIONS: 1. Normal echocardiogram-Doppler. 2. No vegetations observed. 3. Normal left ventricle internal dimensions and wall thickness. Normal regional LV wall motion and wall thickening. Normal LV systolic function. Left ventricular ejection fraction (LVEF) 60% by visual estimate. Normal LV diastolic function.
[2019-09-10] MEDS ORDERED: TERCONAZOLE-7 VAGINAL CREAM PV SCH (21:00)
[2019-09-10] MEDS: ACETAMINOPHEN 500 MG TAB PO PRN (21:50)
[2019-09-11] VITALS (10 sets, daily range): BP systolic 84–120; BP diastolic 56–73
[2019-09-11] MEDS: VANCOMYCIN HCL 750 MG, VIAL MATE ADAPTER 1 EACH in D5W 250 ML IV SCH ×3 (00:08→08:26)
[2019-09-11] MEDS: SLF 3 ML SYR IV PRN (08:25)
[2019-09-11] MEDS: CALCIUM CARBONATE 500 MG CHEW U/D PO PRN (08:25)
[2019-09-11] MEDS: FAMOTIDINE 20 MG TAB PO SCH (09:03)
--- NOTE | 2019-09-11 11:35 | IPNPDOC ---
Date Seen The patient was seen on 09/11/19. Progress Note SUBJECTIVE: 34-year-old female with no significant past medical history who is currently 29 weeks is admitted to labor and delivery for fever and chills. Patient presented last night with fever, chills, increased urinary frequency, cough, nausea and vomiting. Patient's UA looked concerning for infection, presumed to have UTI and treated with first generation cephalosporin, admitted for observation overnight. Patient remains febrile in the morning along with tachycardia and elevated white cell count, hospitalist service requested for medical recommendations/management. Patient reports having cough for the past 2 days, nonproductive, with associated shortness of breath, has kids, flu is rampant at school, even though patient's daughter does not have any signs of infection. She denies any other sick contacts. Sepsis protocol has been initiated including IV fluid bolus, broad-spectrum antibiotic coverage and septic labs. 09/09/19 Patient reports improvement from yesterday, resting comfortably in bed, tolerating diet, no new complaints. 1/2 cultures preliminary growing G+ cocci in clusters. 09/11/19 No acute events overnight, resting comfortably in bed, having mild dry cough, no other complaints. She ambulated yesterday and showered without developing any dyspnea. She has remained clinically stable for >48 hours, at baseline level of health, blood cultures positive for Coag negative Staph, likely contamination. 10 point review of system is negative except for above PHYSICAL EXAMINATION: VITAL SIGNS: Please see below. GENERAL: No distress HEENT: Normocephalic, atraumatic, moist mucous membranes NECK: Supple CARDIOVASCULAR EXAMINATION: S1, S2, no murmurs RESPIRATORY EXAMINATION: clear to auscultation ABDOMINAL EXAMINATION: Soft, nontender, nondistended, abdomen with heart monitor in place, positive bowel sounds EXTREMITIES: Range of motion intact SKIN: No rash NEUROLOGICAL EXAMINATION: Alert and oriented 3, no focal deficits PSYCHIATRIC EXAMINATION: Calm and cooperative LABORATORY DATA: Please see below. ASSESSMENT/PLAN: 34-year-old female with no past medical history currently 29 weeks admitted for sepsis. 1. presumed sepsis Initial presentation concerning for sepsis given fever, hypotension, tachycardia & tachypnea; resolved w/ aggressive IV hydration & empiric antibiotics, infectious workup negative, 1/2 blood cultures positive for Staph. Hominis, likely contamination, repeat blood cultures negative, TTE wnl, will discontinue antibiotics. Patient does not have any objective/clinical findings suggestive of an active systemic infection at this time, can be discharged with close follow up from my perspective. Patient likely has a viral URI even though respiratory viral panel is negative. 2. 29 weeks gestation. Management as per primary team I will sign off at this point, please re-consult if needed. VS, I&O, 24H, Fishbone Vital Signs/I&O Vital Signs Date Time Temp Pulse Resp B/P (MAP) Pulse Ox O2 Delivery O2 Flow Rate FiO2 09/11/19 07:35 97.3 60 18 116/71 (86) 09/10/19 18:38 100 Room Air I&O- Last 24 Hours up to 6 AM 09/11/19 05:59 Intake Total 3410 ml Output Total 3100 ml Balance 310 ml Laboratory Data 24H LABS Laboratory Tests 2 09/10/19 14:08: Vancomycin Level Trough 11.8 Microbiology Microbiology 09/09/19 Blood Culture - Preliminary, Resulted No growth after 24 hours . All specim... 09/09/19 Blood Culture - Preliminary, Resulted No growth after 24 hours . All specim... 09/08/19 Respiratory Virus Panel (PCR) ([facility]) - Final, Complete 09/08/19 Blood Culture - Final, Complete Staphylococcus Hominis [facility] 09/08/19 Blood Culture - Preliminary, Resulted No Growth after 48 hours. All Specime... GRECIA VALDEZ MD Sep 11, 2019 11:35
--- NOTE | 2019-09-12 15:54 | DSES ---
DATE OF ADMISSION: 09/08/2019 DATE OF DISCHARGE: 09/11/2019 FINAL DIAGNOSES: 1. Intrauterine at 29-5/7 weeks gestation. 2. Upper respiratory infection, most likely viral CONDITION ON DISCHARGE: Stable. FOLLOWUP AFTER DISCHARGE: The patient is to followup in the office in approximately 4 days. DISCHARGE INSTRUCTIONS: She is instructed to call if there is any severe coughing, chest pain, or temperature greater than 101. She is also instructed on her kick count and to report any decreased movement of less than 8-10 kicks in an hour or two. BRIEF HISTORY: Ronel is a 34-year-old female who was admitted at 29-3/7 weeks gestation after presenting with complaints of fever, cough, and not feeling well. She was admitted given her persistent fever. She was worked up and treated as sepsis. Her blood culture came back negative. Viral cultures were also negative. She was observed in the hospital for 3 days. On hospital day #2, she was afebrile. She remained afebrile for more than 48 hours. Was placed on continuous monitoring with good tracing for 29 weeks. Her labs were reviewed. She had low potassium during her first admission with a potassium of 3.1, and given the persistent fever, hospitalist consult was obtained with focal management. She was placed on double antibiotic, which was then discontinued this morning after final cultures were found to be negative. After a lengthy discussion with the hospitalist, she was clear for discharge and it was felt that no antibiotic was needed. I counseled the patient, and she will follow up with me in my office for ongoing care. She is further instructed to call if there is any temperature greater than 101 or persistent cough or chest pain. kick count also instructed.
== END 2019-09-11 14:25 | disposition home or self-care (01) | DRG 566 ==
LOC: M LDO 11:25 → M LDI 13:36
PROVIDERS: ADMIT Specialist; ATTEND Specialist
DX: O99.513 Diseases of the respiratory system complicating pregnancy, third trimester (principal); I95.9 Hypotension, unspecified; R78.81 Bacteremia; O26.893 Other specified pregnancy related conditions, third trimester; R50.9 Fever, unspecified; Z3A.29 29 weeks gestation of pregnancy; J06.9 Acute upper respiratory infection, unspecified; B95.7 Other staphylococcus as the cause of diseases classified elsewhere; R00.0 Tachycardia, unspecified; Z88.7 Allergy status to serum and vaccine; O23.33 Infections of other parts of urinary tract in pregnancy, third trimester; O99.413 Diseases of the circulatory system complicating pregnancy, third trimester

== ENCOUNTER → 2019-10-24 | Outpatient (REF) | payer BC | LOC: M LAB REF 12:08 | PROVIDERS: ATTEND Obstetrics & Gynecology | DX: Z34.83 Encounter for supervision of other normal pregnancy, third trimester (principal) ==

== ENCOUNTER 2019-11-15 13:52 | Inpatient (IN) | payer BC ==
[2019-11-15] VITALS (13 sets, daily range): BP systolic 118–166; BP diastolic 63–93
[~2019-11-15] VITALS: Ht 180.3 cm; Wt 114.6 kg
[2019-11-15] MEDS ORDERED: LACTATED RINGER'S 1000 ML IV STA (14:21)
[2019-11-15] MEDS ORDERED: LR 1,000 ML IV SCH (14:21)
[2019-11-15] MEDS ORDERED: TUMS750C5 PO (14:30)
[2019-11-15 15:07] LABS: BASO % 0.1 % (0.0-1.0); EOS % 0.2 % (0.0-3.0); LYMPH # 1.3 10^3/uL (1.5-5.0); LYMPH % 8.6 % (24.0-44.0); MEAN CORPUSCULAR HEMOGLOBIN 29.6 pg (27.0-33.0); MEAN CORPUSCULAR HGB CONC 34.4 g/dl (32.0-36.5); MEAN CORPUSCULAR VOLUME 86.3 fl (80.0-96.0); MONO # 0.9 10^3/uL (0.0-0.8); MONO % 6.1 % (0.0-5.0); NEUTROPHILS # 12.7 10^3/uL (1.5-8.5); NEUTROPHILS % 84.5 % (36.0-66.0); PLATELET COUNT, AUTOMATED 196 10^3/uL (150-450); RED BLOOD COUNT 3.71 10^6/uL (4.00-5.40)
[2019-11-15] MEDS ORDERED: OXYTOCIN 30 UNITS IN 0.9% NaCl 500ML IV BAG (J2590) As Ordered ONE (15:23)
[2019-11-15 15:35] LABS: ALT/SGPT 14 U/L (12-78); BILIRUBIN,TOTAL 0.8 MG/DL (0.2-1.0); CREATININE FOR GFR 0.59 MG/DL (0.55-1.30); GLOMERULAR FILTRATION RATE > 60.0 (>60); LDH LACTATE DEHYDROGENASE 164 U/L (84-246); URIC ACID 5.5 MG/DL (2.6-6.0)
[2019-11-15 15:44] LABS: CORD GAS ABE V -3.7; CORD GAS HCO3 V 17.2 MEQ/L; CORD GAS O2 SAT V 93.4 %; CORD GAS PCO2 V 22.9 mmHg; CORD GAS PO2 V 48.9 mmHg; CORD GAS SBC V 21.3 MEQ/L; CORD GAS TCO2 V 17.9 MEQ/L
[2019-11-15 15:45] LABS: CORD GAS ABE A -2.7; CORD GAS HCO3 A 21.7 MEQ/L; CORD GAS O2 SAT A 82.2 %; CORD GAS PCO2 A 36.9 mmHg; CORD GAS PH A 7.387 UNITS; CORD GAS PH V 7.494 UNITS; CORD GAS PO2 A 37.3 mmHg; CORD GAS SBC A 21.8 MEQ/L; CORD GAS TCO2 A 22.8 MEQ/L
[2019-11-15] MEDS ORDERED: OXYTOCIN DRIP 30 UNITS in IV 1 EA IV SCH (16:04)
--- NOTE | 2019-11-15 16:12 | IPNPDOC ---
Text Note Date of Service The patient was seen on 11/15/19. NOTE 34[address] pt of [address] Wilson. Presents at 39w2d with reports of contractions s connie 1130 followed by SROM clear fluid 1330. Spontaneous bearing down efforts. Viable female delivered OTIS without difficulty @ 1532 Spontaneous respirations, transitioned on maternal abdomen. Cord gases obtained. Cord doubly clamped and cut by FOB under my direction once pulsations ceased. Apgars 9/9 Remainder of note per Dr Wilson. VS,Fishbone, I+O VS, Fishbone, I+O Laboratory Tests 11/15/19 14:53 Melanie Obrien CNM November 15, 2019 15:42
[2019-11-15] MEDS ORDERED: ACETAMINOPHEN 500 MG TAB PO PRN (16:15)
[2019-11-15] MEDS ORDERED: DIBUCAINE 1% OINTMENT 30GM TOP PRN (16:15)
[2019-11-15] MEDS ORDERED: DOCUSATE SODIUM 100 MG CAP PO PRN (16:15)
[2019-11-15] MEDS ORDERED: MEASLES,MUMPS,RUBELLA VACCINE INJ (MMR-II) (90707) SC SCH (16:15)
[2019-11-15] MEDS ORDERED: METHYLERGONOVINE MALEATE 0.2 MG TAB PO PRN (16:15)
[2019-11-15] MEDS ORDERED: RHOGAM 300 MCG (1500 IU) INJ (J2790) IM SCH (16:15)
[2019-11-15] MEDS ORDERED: ACETAMINOPHEN TAB 650MG DOSE (2X325MG) PO PRN (16:15)
[2019-11-15] MEDS ORDERED: IBUPROFEN 600 MG TAB PO PRN (16:15)
[2019-11-15] MEDS: IBUPROFEN 800 MG TAB PO PRN (16:48)
[2019-11-15] MEDS ORDERED: LIDOCAINE 1% MDV 20ML VIAL INFIL ONE (17:15)
[2019-11-16 02:25] LABS: HEMATOCRIT 28.7 % (36.0-47.0); HEMOGLOBIN 9.7 g/dl (12.0-15.5); MEAN CORPUSCULAR HEMOGLOBIN 29.6 pg (27.0-33.0); MEAN CORPUSCULAR HGB CONC 33.8 g/dl (32.0-36.5); MEAN CORPUSCULAR VOLUME 87.5 fl (80.0-96.0); PLATELET COUNT, AUTOMATED 153 10^3/uL (150-450); RED BLOOD COUNT 3.28 10^6/uL (4.00-5.40); WHITE BLOOD COUNT 14.7 10^3/uL (4.0-10.0)
[2019-11-16 06:00] VITALS: BP 139/66
[2019-11-16] MEDS: IBUPROFEN 800 MG TAB PO PRN (06:27)
--- NOTE | 2019-11-16 07:17 | IPNPDOC ---
Text Note Date of Service The patient was seen on 11/16/19. NOTE PP #1 Feels better. No more chills or sweats. Adequate pain management. Voiding Temp max 100.7 overnight. Normotensive CBC WBC 14.7, decreased from admit Breasts soft, nipples intact Fundus firm, NT, down 1 Lochia rubra light without odor Perineum well approximated PP #1, temp elevation Observe temp. Routine care. Consider discharge in am VS,Ethan, I+O VS, Ethan, I+O Laboratory Tests 11/15/19 14:53 11/16/19 02:17 Vital Signs Date Time Temp Pulse Resp B/P (MAP) Pulse Ox O2 Delivery O2 Flow Rate FiO2 11/16/19 06:00 99.4 68 19 139/66 (90) Room Air 11/15/19 14:27 98 I&O- Last 24 Hours up to 6 AM 11/16/19 06:00 Intake Total 500 ml Output Total 1400 ml Balance -900 ml Melanie Obrien CNM November 16, 2019 07:17
[2019-11-16] MEDS ORDERED: PRENATAL VITAMINS CHEWABLE TABLET PO SCH (09:00)
--- NOTE | 2019-11-16 10:32 | HPE ---
DATE OF ADMISSION: 11/15/2019 Ronel is a 34-year-old female, 3, para 1-0-1-1 with an estimated date of confinement (EDC) of 11/22/2019, estimated gestational age (EGA) 39 weeks' gestation, who presented to labor and delivery with complaints of contractions every 3-4 minutes and gross rupture of membrane. Upon evaluation in labor and delivery, she was found to be in active labor and progressing fairly rapidly. At this point, a decision was made for admission. Her record reviewed, which was essentially unremarkable. LABORATORY: Blood type is O negative, rubella immune, hepatitis negative, HIV negative, gonorrhea culture (GC) and chlamydia negative. 1-hour sugar testing was within normal limits. Her group B streptococcus (GBS) is negative. PAST MEDICAL HISTORY: Past medical history is significant for anxiety. PAST SURGICAL HISTORY: Bladder repair, tonsillectomy. SOCIAL HISTORY: She is . Denies any alcohol, drugs, or cigarette smoking. REVIEW OF SYSTEMS: Unremarkable. MEDICATIONS: - vitamin ALLERGIES: No known drug allergy, but she is allergic to PERTUSSIS VACCINES. PHYSICAL EXAMINATION: Obese female in no acute distress. Abdomen: Soft, nontender, nondistended. Extremities: No clubbing, cyanosis, or edema. Vaginal examination: Done by registered nurse (RN). 5 cm dilated. 100% grossly ruptured. Nitrazine positive. Tracing reviewed; category one tracing. ASSESSMENT: Intrauterine at 39 weeks' gestation with spontaneous rupture of membranes, in active labor. PLAN: Admit to labor and delivery. Routine laboratories sent. Awaiting delivery.
[2019-11-16] MEDS ORDERED: CALCIUM GLUCONATE 1,000MG/10ML VIAL (100MG/ML) (J0610) As Ordered ONE (12:52)
[2019-11-16] MEDS ORDERED: CALCIUM CARBONATE 500 MG CHEW U/D PO ONE (13:00)
[2019-11-16 18:02] VITALS: BP 127/83
--- NOTE | 2019-11-16 21:03 | DN ---
DATE: 11/15/2019 Ronel is a 34-year-old female, 3, para 1-0-0-1, who was admitted at 39 weeks gestation with gross rupture of membrane in active labor. She progressed to fully dilated fairly quickly. Had a precipitous delivery in bed with a certified nurse marketing sales manager Trinh and for delivery. Upon my arrival, the placenta was delivered manually. scores 9 and 9, weight 9 pounds 1 ounce. The vagina, cervix, and perineum inspected. A first degree midline perineal laceration was noted, which was repaired using 2-0 chromic. Estimated blood loss 300 mL. Both mother and baby in stable condition.
== END 2019-11-16 20:10 | disposition home or self-care (01) | DRG 541 ==
LOC: M LDO 13:52 → M LDI 14:32 → M OBS 18:11
PROVIDERS: ADMIT Obstetrics & Gynecology; ATTEND Obstetrics & Gynecology
PROC: 10E0XZZ Delivery of Products of Conception, External Approach (ICD-10-PCS; principal; 2019-11-15)
PROC: 10D17Z9 Manual Extraction of Products of Conception, Retained, Via Natural or Artificial Opening (ICD-10-PCS; 2019-11-15)
PROC: 0HQ9XZZ Repair Perineum Skin, External Approach (ICD-10-PCS; 2019-11-15)
DX: O62.3 Precipitate labor (principal); O70.0 First degree perineal laceration during delivery; Z3A.39 39 weeks gestation of pregnancy; Z37.0 Single live birth; O73.0 Retained placenta without hemorrhage

== ENCOUNTER 2019-11-18 09:30 | Inpatient (IN) | payer BC ==
[~2019-11-18] VITALS: Ht 180.3 cm; Wt 107.3 kg
[~2019-11-18 09:30] MED LIST changes: +TUMS750C5 PO
[2019-11-18] MEDS ORDERED: NS 1,000 ML IV ONE (10:15)
[2019-11-18] MEDS ORDERED: MORPHINE 4 MG/ML 1ML VIAL/SYRINGE (J2270) IV ONE (10:15)
[2019-11-18 10:17] LABS: HEMATOCRIT 35.5 % (36.0-47.0); HEMOGLOBIN 12.3 g/dl (12.0-15.5); MEAN CORPUSCULAR HEMOGLOBIN 29.7 pg (27.0-33.0); MEAN CORPUSCULAR HGB CONC 34.6 g/dl (32.0-36.5); MEAN CORPUSCULAR VOLUME 85.7 fl (80.0-96.0); PLATELET COUNT, AUTOMATED 184 10^3/uL (150-450); RED BLOOD COUNT 4.14 10^6/uL (4.00-5.40); WHITE BLOOD COUNT 7.3 10^3/uL (4.0-10.0)
[2019-11-18 10:33] LABS: LYMPHOCYTES 1 % (16-44); NEUTROPHILS 76 % (28-66)
[2019-11-18 10:34] LABS: DOHLE BODIES 1+; PLATELET CLUMPS SMALL AMT; PLATELET ESTIMATE NORMAL (NORMAL); TOXIC VACUOLATION 2+
[2019-11-18 10:48] LABS: ALBUMIN 2.1 GM/DL (3.2-5.2); ALT/SGPT 30 U/L (12-78); BILIRUBIN,DIRECT 1.6 MG/DL (0.0-0.2); BILIRUBIN,TOTAL 2.4 MG/DL (0.2-1.0); BLOOD UREA NITROGEN 22 MG/DL (7-18); CALCIUM LEVEL 9.2 MG/DL (8.5-10.1); CARBON DIOXIDE LEVEL 20 MEQ/L (21-32); CHLORIDE LEVEL 107 MEQ/L (98-107); CREATININE FOR GFR 1.26 MG/DL (0.55-1.30); GLOMERULAR FILTRATION RATE 52.4 (>60); GLUCOSE, FASTING 53 MG/DL (70-100); LIPASE 21 U/L (73-393); POTASSIUM SERUM 3.1 MEQ/L (3.5-5.1); SODIUM LEVEL 138 MEQ/L (136-145); TOTAL PROTEIN 5.3 GM/DL (6.4-8.2)
[2019-11-18] MEDS ORDERED: AMPICILLIN SOD/SULBACTAM SOD 3 GM in D5W MINI-BAG PLUS 100 ML IV ONE (11:00)
[2019-11-18] MEDS ORDERED: NS 2,180 ML in IV 1 EA IV ONE (11:00)
[2019-11-18] MEDS ORDERED: DEXTROSE 50% 50 ML SYRINGE IV STA (11:00)
[2019-11-18] MEDS ORDERED: POTASSIUM CHLORIDE 10 MEQ SR TABLET PO ONE (11:15)
[2019-11-18] MEDS ORDERED: ISOVUE-370 76% 100ML VIAL As Ordered ONE (11:23)
[2019-11-18 11:46] LABS: BILIRUBIN, URINE MANUAL OBSCURED (NEGATIVE); GLUCOSE, URINE (UA) MANUAL NEGATIVE (NEGATIVE); KETONE, URINE MANUAL OBSCURED mg/dL (NEGATIVE); UROBILINOGEN, URINE MANUAL OBSCURED mg/dl (NORMAL)
[2019-11-18 11:55] LABS: RBC, URINE 15-20 /hpf (0-3); SQUAMOUS EPITHELIAL CELL URINE SMALL AMOUNT /hpf (SMALL AMT); TRANSITIONAL EPI CELLS, URINE SMALL AMOUNT /hpf
[2019-11-18 11:56] LABS: RENAL EPITHELIAL CELLS, URINE LARGE AMOUNT /hpf; URIC ACID CRYSTALS, URINE SMALL AMOUNT /hpf
[2019-11-18 11:58] LABS: AMORPHOUS SEDIMENT, URINE SMALL AMOUNT (NEGATIVE); BACTERIA, URINE MOD AMOUNT; HYALINE CAST, URINE 0-1 /lpf (0-1)
[2019-11-18 12:17] LABS: CK-MB VALUE MASS < 1.0 NG/ML (<3.6); CPK CREATINE PHOSPHOKINASE 46 U/L (26-192); MB/CK RELATIVE INDEX 2.17 (< OR =4); TROPONIN I < 0.02 NG/ML (< 0.10)
--- NOTE | 2019-11-18 12:30 | REP ---
REASON FOR EXAM: Diffuse abdominal pain. PRIORS: None. CONTRAST: 100 mL Isovue 370. The patient is vaginal delivery. There are bibasilar patchy opacities and a tiny right pleural effusion. The liver, spleen, gallbladder, pancreas, adrenal glands, and kidneys are within normal limits. The abdominal aorta and para-aortic regions are within normal limits. There is a small amount of ascites. There are a few nondilated fluid-filled small bowel loops. There is no free air. There is no intra-abdominal mass or adenopathy. CT PELVIS: The uterus is enlarged status post delivery. There is a small amount of free pelvic fluid. There is no mass or adenopathy. There is no free air. Bone window technique through the examination shows the osseous structures to be within normal limits. IMPRESSION: 1. Bibasilar subsegmental atelectatic changes are suspected. Certainly, basilar pneumonia could not be ruled out. There is a very small right pleural effusion. 2. There is a small amount of ascites, etiology uncertain. 3. Other findings as described above. Electronically Signed by Bonifacio Davila DO 11/18/2019 12:51 P
[2019-11-18] MEDS ORDERED: IBUP200T45 PO (13:39)
[2019-11-18] MEDS ORDERED: ACET-683 PO (13:39)
--- NOTE | 2019-11-18 13:57 | REP ---
PELVIC ULTRASOUND: Real-time sonographic evaluation of the pelvis performed utilizing transabdominal technique. The bladder is empty. The uterus is enlarged consistent with state. The uterus measures 22.0 x 11.8 x 11.8 cm. Endometrial thickness is significantly increased at 8 cm. Endometrial echo complex is heterogeneous with increased flow with Doppler evaluation. Findings may represent retained products of conception or endometritis. There is mild free fluid in the pelvis. Ovaries demonstrate no torsion, blood flow is seen in each ovary with duplex Doppler evaluation. Right ovary measures 5.5 x 4.5 x 5.0 cm and left ovary 5.2 x 4.2 x 3.9 cm. No adnexal mass is seen. IMPRESSION: Enlarged uterus. Significant endometrial thickening with heterogeneity and hypervascularity, maximum thickness is 8 cm. Findings may represent retained products of conception or endometritis. Mild free fluid. Electronically Signed by Tuan Delcid MD 11/18/2019 01:59 P
[2019-11-18] MEDS: PERCOCET 5MG/325MG TAB PO PRN ×2 (14:19→20:04)
[2019-11-18 15:15] VITALS: BP 127/89
[2019-11-18] MEDS ORDERED: PERCOCET 5MG/325MG TAB PO PRN (15:15)
[2019-11-18] MEDS ORDERED: LR 1,000 ML IV SCH (15:15)
[2019-11-18] MEDS ORDERED: IBUPROFEN 600MG TAB PO PRN (15:15)
--- NOTE | 2019-11-18 16:46 | ECGEPIP ---
[facility] - ED Test Date: 2019-11-18 Pat Name: OMER WILSON Department: Room: - Gender: Female City Assessor: : [id number] Requested By: DENNIS Dudley Order Number: [id number] Reading MD: Karma Munoz Measurements Intervals [place] Rate: 122 P: 62 AK: 135 QRS: 30 QRSD: 91 T: 29 QT: 311 QTc: 445 Interpretive Statements SINUS TACHYCARDIA ABNORMAL RHYTHM ECG NSTTW abnormalities NO PRIOR Electronically Signed on 11-18-2019 16:46:32 EDT by Karma Munoz
[2019-11-18] MEDS ORDERED: AMPICILLIN SOD/SULBACTAM SOD 3 GM in D5W MINI-BAG PLUS 100 ML IV SCH (17:00)
[2019-11-18] MEDS ORDERED: D5W/0.9% SODIUM CHLORIDE 1,000 ML IV ONE (21:15)
[2019-11-18 21:20] VITALS: BP 128/75
--- NOTE | 2019-11-18 21:20 | HPEPDOC ---
[facility] Medical History & Physical Date of Admission November 18, 2019 Date of Service: November 18, 2019 Attending Physician: Donnie Wilson DO History and Physical TIME OF SERVICE: 8:50 PM REASON FOR CONSULT: Hypoglycemia and fever HISTORY OF PRESENT ILLNESS: This 34-year-old female is 3 days and had a vaginal delivery. Today she was sent from Dr. Wilson's office for evaluation of diffuse 10/10 in severity abdominal pain that makes it difficult for her to walk. The pain improved slightly after receiving morphine. She has lochia, denies noticing any foul smelling vagina discharge and denies having an excessive amount of bleeding or blood clots. She is also c/o of nausea without vomiting, difficulties swallowing and shortness of breath. She denies having chest pain, and worsening of her lower extremity swelling. Because of the abdominal pain she has had a poor appetite; her last full meal was on Monday. Per d/w she was started on Unasyn for possible endometritis. 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 Hers serum glucose was 26, and her lactic acid was greater than 5; she is on 0.9%NS and has received juice, crackers and D50. REVIEW OF SYSTEMS: 12 point review of systems negative except as listed in HPI PAST MEDICAL/ SURGICAL HISTORY: none SOCIAL HISTORY: - Tobacco - Alcohol - Drugs FAMILY HISTORY: Her mother has DM ALLERGIES: Please see below. HOME MEDICATIONS: Please see below PHYSICAL EXAMINATION: Vital Signs Date Time Temp Pulse Resp B/P (MAP) Pulse Ox O2 Delivery O2 Flow Rate FiO2 11/18/19 09:31 98.9 159 17 114/65 (81) 97 Room Air GEN: well-nourished / well developed/ NAD INTEGUMENT: slightly flushed & diaphoretic / not jaundice HEENT: NCAT / lips acyanotic /mucus membranes moist and pink CVS: tachycardic /NMRG/ radial pulses intact / trace lower extremity edema, the LLE appears slightly larger than the RLE LUNGS: able to speak full sentences without stopping to take a breath / she is using accessory mucles/ breath sounds are deminshed on room air ABDOMEN: distended & soft MSK/EXTREMITIES: range of motion intact in all 4 extremities NEURO: CN 2-12 are grossly intact / speech is not dysarthric PSYCH: alert and oriented to person place and time/ able to understand and follow all commands LABORATORY DATA: Neutrophils (%) (Auto) , Nucleated Red Blood Cells % (auto) 0.0, Neutrophils 76H, Band Neutrophils 23H, Lymphocytes (Manual) 1L, Dohle Bodies 1+, Toxic Vacuolation 2+, Platelet Estimate NORMAL, Clumped Platelets SMALL AMT, Anion Gap 11, Glomerular Filtration Rate 52.4L, Lactic Acid Level 2.7*H, Calcium Level 9.2, Total Bilirubin 2.4#H, Direct Bilirubin 1.6H, Aspartate Amino Transf (AST/SGOT) 62H, Alanine Aminotransferase (ALT/SGPT) 30, Alkaline Phosphatase 158H, Total Creatine Kinase 46, Creatine Kinase MB < 1.0, Creatine Kinase MB Relative Index 2.17, Troponin I < 0.02, Total Protein 5.3L, Albumin 2.1L, Albumin/Globulin Ratio 0.66L, Lipase 21L Urine Color (BJ) ORANGEH, Urine Appearance (BJ) CLOUDYH, Urine pH (BJ) 5.0, Urine Specific [place] (BJ) 1.028, Bedside Urine Glucose (UA) NEGATIVE, Bedside Urine Ketones (LAB) OBSCUREDH, Bedside Urine Blood POSITIVEH, Bedside Urine Nitrite (LAB) OBSCUREDH, Bedside Urine Bilirubin (LAB) OBSCUREDH, Bedside Urine Urobilinogen (LAB) OBSCUREDH, Bedside Urine Leukocyte Esterase (L POSITIVEH, Urine Sediment Examination PERFORMED, Urine RBC 15-20H, Urine WBC 20-30H, Urine Squamous Epithelial Cells SMALL AMOUNT, Urine Transitional Epithelial Cells SMALL AMOUNTH, Urine Renal Epithelial Cells LARGE AMOUNTH, Urine Uric Acid Crystals SMALL AMOUNTH, Urine Amorphous Sediment SMALL AMOUNTH, Urine Bacteria MOD AMOUNTH, Urine Hyaline Casts 0-1, Urine Granular Casts 3-5H 11/18/19 14:27: Lactic Acid Followup at 4 Hours 5.3*H 11/18/19 17:58: Urine Squamous Epithelial Cells 3, Urine Amorphous Sediment SMALLH, Urine Color GUY, Urine Appearance HAZY, Urine pH 6.0, Urine Specific [place] 1.051, Urine Protein 2+H, Urine Glucose (UA) NEGATIVE, Urine Ketones NEGATIVE, Urine Blood 3+H, Urine Nitrite NEGATIVE, Urine Bilirubin NEGATIVE, Urine Urobilinogen 2.0H, Urine Leukocyte Esterase 2+H, Urine WBC (Auto) 115H, Urine RBC (Auto) TNTCH, Urine Hyaline Casts (Auto) 0, Urine Bacteria (Auto) 1+H, Urine Sperm (Auto) 11/18/19 20:37: Bedside Glucose (Misc Panel) 26*L 11/18/19 20:52: Bedside Glucose (Misc Panel) 35*L 11/18/19 21:09: Bedside Glucose (Misc Panel) 139H IMAGING: CT abdomen/pelvis "IMPRESSION: 1. Bibasilar subsegmental atelectatic changes are suspected. Certainly, basilar pneumonia could not be ruled out. There is a very small right pleural effusion. 2. There is a small amount of ascites, etiology uncertain. 3. Other findings as described above." Pelvic US "IMPRESSION: Enlarged uterus. Significant endometrial thickening with heterogeneity and hypervascularity, maximum thickness is 8 cm. Findings may represent retained products of conception or endometritis. Mild free fluid." MICROBIOLOGY: 11/18/19 Urine Culture, Received Pending 11/18/19 Urine Culture, Received Pending 11/18/19 Blood Culture, Received Pending 11/18/19 Blood Culture, Received Pending ASSESSMENT: Ms. Quesada is a 34 yr old female who is 3 days post- that was admitted for management of possible endometritis; despite starging abx she has developed hypoglycemia and will be transferred to PCU for closer monitoring. PLAN: 1. Sepsis possibly 2/2 Endometritis and or UTI SIRS criteria include Temp 101.5 / HR 159 / bands > 23% / RR 30 Other abnormal labs related to sepsis include Jose of 2.4 & lactic acid of 5.[address] of the abdomen showed ascites, while the US showed endometritis and the UA was + for leuk est & WBCs EKG showed sinus tachycardia NEW2S Score = 9 points = high risk Plan: admit to ICU / telemetry / Sepsis protocol / trend lactic acid, f/u coags to r/o DIC / switch from Unasyn to Zozyn pending blood cx and UCx / switch to D5NS @150ml/H / Acetaminophen PRN for fever / Ofrimev x1 and morphine PRN for adominal pain / target MAP of at least 65 to 70 / f/u Is and Os with target UOP of at least 0.5 ml/kg/H / target serum glucose 140-180 while acutely ill 2. Hypoglycemia Likely 2/2 poor oral intake over the last 2 days and sepsis. Plan: hypoglycemia protocol / switch from NS to D5 NS @ 150ml/H / f/u acucchecks Q4H, blood cultures / if she has another episode of hypoglycemia we will check plasma insulin, c-peptide, proinsulin & b-hydroxybutyrate 3. LLE Swelling Plan: f/u US of LLE to r/o DVT 4. Hypokalemia Likely 2/2 poor PO intake Plan: replete K / f/u Mag and Phosph 5. Right Pleural effusion Less likely 2/2 PNA. 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 Transaminitis with Ascites Plan: f/u liver US/ trend LFTs / f/u Hep panel / if her abdominal pain doesn't improve over the next day or so, the day time team may consider IR consult for diagnostic paracentesis 7. Nausea / Dyspepsia & Dysphagia Plan: Tums / omeprazole PRN if tums is not effective DVT PROPHYLAXIS: Lovenox DISPOSITION: pending clinical course LATE ENTRY 1126PM 8. Elevated D-dimer could be due to PE or elevated bc she is in the peripartum period D-dimer is >4000, LLE US is negative Plan: bc she is tachypneic we will f/u CTA to r/o PE 9.Elevated BNP could be due to right heart strain from PE or peripartum cardiomyopathy Plan: f/u Echo in the morning LATE ENTRY 451AM CTA of the chest r/o segmental or central PE but couldn't r/o peripheral PE. There was also thickening of the gastroesophageal wall. A pericardial effusion, pleural effusion and ascities were also visualized. #Dysphagia is likely 2/2 GE wall thickening Cause TBD Plan: we will order an esophagram & ask the day time team to consult Gen Surg for EGD. #Small Pericardial Effusion Her MAP is >65 Plan:f/u Echo & ask the day time team to consider consulting Home Medications Scheduled [id number]/Iron Fum/Folic/Docusate ( 19 Tablet) 1 Tab Tab, 1 TAB PO DAILY Scheduled PRN Acetaminophen (Acetaminophen) 500 Mg Tablet, 1,000 MG PO Q6H PRN for PAIN Ibuprofen (Ibu-200) 200 Mg Tablet, 600 MG PO Q6H PRN for PAIN Allergies Coded Allergies: diphtheria, pertussis, tetanus vacc (Verified Allergy, Mild, HALLUCINATIONS AND HIVES, 11/15/19) A-FIB/CHADSVASC A-FIB History Current/History of A-Fib/PAF?: No Current PO Anticoag Therapy: No TREVOR HANKINS MD November 18, 2019 21:20
[2019-11-18 21:24] LABS: HEMATOCRIT 31.9 % (36.0-47.0); HEMOGLOBIN 10.8 g/dl (12.0-15.5); MEAN CORPUSCULAR HEMOGLOBIN 29.3 pg (27.0-33.0); MEAN CORPUSCULAR HGB CONC 33.9 g/dl (32.0-36.5); MEAN CORPUSCULAR VOLUME 86.7 fl (80.0-96.0); PLATELET COUNT, AUTOMATED 145 10^3/uL (150-450); RED BLOOD COUNT 3.68 10^6/uL (4.00-5.40); WHITE BLOOD COUNT 5.7 10^3/uL (4.0-10.0)
[2019-11-18] MEDS ORDERED: DEXTROSE 50% 50 ML SYRINGE IV PRN (21:30)
[2019-11-18] MEDS ORDERED: GLUCAGON INJ 1MG VIAL SC PRN (21:30)
[2019-11-18] MEDS ORDERED: GLUCOSE 4GM CHEW TABLET PO PRN (21:30)
[2019-11-18 21:36] LABS: FIBRINOGEN 539 MG/DL (221-452); PROTHROMBIN TIME 18.8 SECONDS (11.8-14.0)
[2019-11-18 21:50] LABS: DOHLE BODIES 1+; LYMPHOCYTES 5 % (16-44); METAMYELOCYTES 1 % (0-0); NEUTROPHILS 71 % (28-66); TOXIC VACUOLATION 1+
[2019-11-18] MEDS: MORPHINE 2 MG/ML 1ML VIAL (J2270) IV PRN (21:51)
[2019-11-18 21:52] LABS: PLATELET ESTIMATE DECREASED (NORMAL)
[2019-11-18] MEDS ORDERED: MAALOX 30 ML SUSP *UDC PO PRN (22:00)
[2019-11-18] MEDS ORDERED: ACETAMINOPHEN *IV* 1,000 MG in IV 1 EA IV ONE (22:00)
[2019-11-18] MEDS ORDERED: MOM 30ML SUSPENSION UDC PO PRN (22:00)
[2019-11-18] MEDS ORDERED: OMEPRAZOLE 20 MG CAP PO PRN (22:00)
[2019-11-18 22:05] LABS: D-DIMER QUANT > 4000 ng/ml (<500)
[2019-11-18 22:15] LABS: ALBUMIN 1.6 GM/DL (3.2-5.2); ALT/SGPT 27 U/L (12-78); BILIRUBIN,TOTAL 2.4 MG/DL (0.2-1.0); BLOOD UREA NITROGEN 22 MG/DL (7-18); CALCIUM LEVEL 7.6 MG/DL (8.5-10.1); CARBON DIOXIDE LEVEL 18 MEQ/L (21-32); CHLORIDE LEVEL 109 MEQ/L (98-107); CREATININE FOR GFR 1.17 MG/DL (0.55-1.30); GLOMERULAR FILTRATION RATE 57.1 (>60); GLUCOSE, FASTING 168 MG/DL (70-100); NT-PRO BNP 1686 PG/ML (<125); POTASSIUM SERUM 3.1 MEQ/L (3.5-5.1); SODIUM LEVEL 137 MEQ/L (136-145); TOTAL PROTEIN 4.3 GM/DL (6.4-8.2); TROPONIN I < 0.02 NG/ML (< 0.10)
--- NOTE | 2019-11-18 22:28 | REPVR ---
PROCEDURE INFORMATION: Exam: US Duplex Left Lower Extremity Veins, Limited Exam date and time: 11/18/2019 10:19 PM Age: 34 years old Clinical indication: Edema, localized; Lower extremity, left; Additional info: Left leg swelling with tachycardia R/O dvt TECHNIQUE: Imaging protocol: Real-time Duplex ultrasound of the Left Lower Extremity with 2-D chirinos scale, color Doppler flow and spectral waveform analysis with image documentation. Limited exam focused on the left lower extremity veins. COMPARISON: No relevant prior studies available. FINDINGS: Left deep veins: Unremarkable. The common femoral, femoral, proximal profunda femoral and popliteal veins are patent without thrombus. Normal Doppler waveforms. Normal compressibility and/or augmentation response. Left superficial veins: Unremarkable. Saphenofemoral junction is patent without thrombus. Soft tissues: Unremarkable. IMPRESSION: No evidence of deep vein thrombosis. Electronically signed by: Rg Ji On 11/18/2019 22:28:05 PM
[2019-11-18] MEDS: CALCIUM CARBONATE 500 MG CHEW U/D PO PRN (22:32)
[2019-11-18] MEDS: D5W/0.9% SODIUM CHLORIDE 1,000 ML IV SCH (22:38)
[2019-11-18] MEDS: ENOXAPARIN 40MG/0.4ML SYRINGE (J1650 PER 10MG) SC SCH (23:02)
[2019-11-18] MEDS ORDERED: MAG SULF 1GM/100ML (MAG RUN) 1 GM in IV 1 EA IV ONE (23:30)
[2019-11-18 23:49] LABS: ACETONE/KETONE 8.19 MG/DL (<2.81); MAGNESIUM LEVEL 1.4 MG/DL (1.8-2.4); PHOSPHORUS LEVEL 3.3 MG/DL (2.5-4.9)
[2019-11-18 23:59] VITALS: BP 104/66
[2019-11-19] VITALS (8 sets, daily range): BP systolic 96–155; BP diastolic 64–100
[2019-11-19] MEDS ORDERED: KCL 10MEQ/100ML SWI (KRUN) 10 MEQ in IV 1 EA IV ONE ×2
[2019-11-19] MEDS: PIPERACILLIN/TAZOBACTAM SOD 4.5 GM in D5W MINI-BAG PLUS 50 ML IV SCH ×2 (00:28→05:56)
[2019-11-19] MEDS ORDERED: ISOVUE-370 76% 100ML VIAL As Ordered ONE (00:58)
--- NOTE | 2019-11-19 01:37 | REPVR ---
PROCEDURE INFORMATION: Exam: CT Angiography Chest With Contrast Exam date and time: 11/19/2019 12:54 AM Age: 34 years old Clinical indication: Chest pain; Type not specified; Patient HX: Elevated dimer; Additional info: Tachycardia, tachypnea, elevated bnp TECHNIQUE: Imaging protocol: Computed tomographic angiography of the chest with intravenous contrast. 3D rendering: MIP and/or 3D reconstructed images were created by the technologist. Radiation optimization: All CT scans at this facility use at least one of these dose optimization techniques: automated exposure control; mA and/or kV adjustment per patient size (includes targeted exams where dose is matched to clinical indication); or iterative reconstruction. Contrast material: ISO; Contrast volume: 75 ml; Contrast route: AC; COMPARISON: CR PORTABLE CHEST X-RAY 2019-09-08 12:07 FINDINGS: Pulmonary arteries: The pulmonary arteries demonstrate mild central enlargement, consistent with mild pulmonary hypertension. Suboptimal pulmonary artery contrast concentration for pulmonary emboli evaluation. No main or segmental central pulmonary emboli. Nondiagnostic for more peripheral pulmonary branches. Aorta: Unremarkable. No aortic aneurysm. No aortic dissection. Lungs: Dependent subsegmental pulmonary atelectasis. Pleural space: Small bilateral pleural effusions. Heart: Moderate cardiac enlargement. Small pericardial effusion. Mediastinum: Small hiatal hernia. Gastroesophageal wall thickening, correlate with esophagram. Lymph nodes: Unremarkable. No enlarged lymph nodes. Liver: Liver enlargement. Intraperitoneal space: Partially visualized abdominal ascites. Bones/joints: Unremarkable. No acute fracture. Soft tissues: Unremarkable. IMPRESSION: 1. Small bilateral pleural effusions. Small pericardial effusion. Partially visualized abdominal ascites. 2. Small hiatal hernia. Gastroesophageal wall thickening, correlate with esophagram. 3. Suboptimal pulmonary artery contrast concentration for pulmonary emboli evaluation. No main or segmental central pulmonary emboli. Nondiagnostic for more peripheral pulmonary branches. Electronically signed by: Rg Ji On 11/19/2019 01:37:29 AM
[2019-11-19] MEDS: CALCIUM CARBONATE 500 MG CHEW U/D PO PRN ×3 (02:38→21:38)
[2019-11-19] MEDS: D5W/0.9% SODIUM CHLORIDE 1,000 ML IV SCH ×2 (04:05→14:35)
[2019-11-19 04:59] LABS: HEMOGLOBIN 11.3 g/dl (12.0-15.5); MEAN CORPUSCULAR HEMOGLOBIN 29.9 pg (27.0-33.0); MEAN CORPUSCULAR HGB CONC 34.2 g/dl (32.0-36.5); MEAN CORPUSCULAR VOLUME 87.3 fl (80.0-96.0); PLATELET COUNT, AUTOMATED 159 10^3/uL (150-450); RED BLOOD COUNT 3.78 10^6/uL (4.00-5.40); WHITE BLOOD COUNT 7.8 10^3/uL (4.0-10.0)
[2019-11-19 05:23] LABS: ALBUMIN 1.6 GM/DL (3.2-5.2); BILIRUBIN,TOTAL 2.6 MG/DL (0.2-1.0); CALCIUM LEVEL 7.4 MG/DL (8.5-10.1); CREATININE FOR GFR 1.33 MG/DL (0.55-1.30); GLOMERULAR FILTRATION RATE 49.2 (>60); LYMPHOCYTES 4 % (16-44); METAMYELOCYTES 2 % (0-0); MONOCYTES 1 % (0-5); NEUTROPHILS 89 % (28-66); PLATELET ESTIMATE NORMAL (NORMAL); POTASSIUM SERUM 3.1 MEQ/L (3.5-5.1); TOTAL PROTEIN 4.2 GM/DL (6.4-8.2)
[2019-11-19 05:24] LABS: DOHLE BODIES 1+
[2019-11-19] MEDS ORDERED: POTASSIUM CHLORIDE 10 MEQ SR TABLET PO ONE ×4 (07:00→20:00)
[2019-11-19] MEDS: ACETAMINOPHEN TAB 650MG DOSE (2X325MG) PO PRN ×2 (07:56→21:37)
[2019-11-19] MEDS ORDERED: KCL 10MEQ/100ML SWI (KRUN) 10 MEQ in IV 1 EA IV SCH (08:00)
[2019-11-19] MEDS ORDERED: MAG SULF 1GM/100ML (MAG RUN) 1 GM in IV 1 EA IV ONE (08:00)
[2019-11-19] MEDS ORDERED: VANCOMYCIN HCL 1,000 MG, VIAL MATE ADAPTER 1 EACH in D5W 250 ML IV SCH (08:15)
[2019-11-19] MEDS ORDERED: E-Z-PAQUE 96% w/w SUSP 176GM BTL As Ordered ONE (08:44)
[2019-11-19] MEDS ORDERED: E-Z-GAS II EFFERVESCENT PACKET (SODIUM BICARB./CITRIC ACID/SIMETHICONE) As Ordered ONE (08:44)
[2019-11-19] MEDS ORDERED: E-Z-HD 98% w/w 340GM SUSP BTL As Ordered ONE (08:44)
[2019-11-19] MEDS ORDERED: INFLUENZA QUADRIVALENT PF VACCINE 0.5ML SYRINGE IM ONE (09:00)
[2019-11-19] MEDS ORDERED: VANCOMYCIN HCL 1,000 MG, VIAL MATE ADAPTER 1 EACH in D5W 250 ML IV ONE ×2 (09:00→10:00)
[2019-11-19 09:18] LABS: INR 1.36; PROTHROMBIN TIME 16.5 SECONDS (11.8-14.0)
--- NOTE | 2019-11-19 09:59 | REP ---
RIGHT UPPER QUADRANT ULTRASOUND: Real-time sonographic evaluation of the right upper quadrant performed. There may be a small amount of sludge in the gallbladder. The gallbladder wall is slightly thickened at 4-5 mm. No intrahepatic or extrahepatic biliary dilatation, common bile duct measuring 4 mm. The liver demonstrates no gross mass. Pancreas could not be visualized due to overlying bowel gas. Right kidney demonstrates no hydronephrosis with normal size 12 cm in length. Tiny amount of free fluid is seen in the subhepatic space. There is a very small right pleural effusion. IMPRESSION: Suspect a small amount of sludge in the gallbladder. No gallstones seen. There is mild gallbladder wall thickening. No intrahepatic or extrahepatic biliary dilatation. No liver mass. Tiny amount of subhepatic free fluid. Small right effusion. Electronically Signed by Tuan Delcid MD 11/19/2019 10:01 A
[2019-11-19] MEDS ORDERED: D5W IV SCH (10:00)
[2019-11-19] MEDS ORDERED: LIDOCAINE 1% IV SCH (10:00)
[2019-11-19] MEDS ORDERED: POTASSIUM CHLORIDE IV SCH (10:00)
[2019-11-19] MEDS: PANTOPRAZOLE 40MG VIAL (C9113 PER 1) IV SCH (10:13)
[2019-11-19] MEDS: MORPHINE 2 MG/ML 1ML VIAL (J2270) IV PRN ×2 (10:53→21:37)
--- NOTE | 2019-11-19 11:18 | PHACANCOPD ---
PHARMACY VANCOMYCIN DOSING Pt Demographics Demographics Patient Age:34 , Weight:108.000 , Gender: female Adjusted Body Weight Date: 11/19/19, Adjusted Body Weight: Kg Events Past 24 Hours Events Past 24 Hours: YES: Fever Vancomycin Vancomycin Target Ranges: 15-20 mcg/ml Vancomycin Load Y/N: Yes Load Dose Date Time Vancomycin Load Dose: 2 GM Date: 11/18 Time: 0900 Vancomycin Dose Date: 11/19/19. Current Vancomycin Dose: [750 MG IV Q8H @17] Intermittent Dosing?: No Labs Micro Microbiology 11/19/19 Blood Culture, Received Pending 11/19/19 Blood Culture, Received Pending 11/18/19 Urine Culture, Received Pending 11/18/19 Urine Culture - Preliminary, Resulted Streptococcus Pyogenes Grp A 11/18/19 Blood Culture, Received Pending 11/18/19 Blood Culture - Preliminary, Resulted Creatinine Clearance Date:11/19/19. Creatinine Clearance: . Assessment and Plan Maintaining Current Dose?: Yes Reason for dose change: No Dose Change Pharmacist Note Pharmacist Note Date: 11/19/19. Pharmacist note: Pharmacy consulted for Vancomycin dosing for treatment of preliminary positive blood culture with a goal trough of 15-20 mcg/ml. The patient is also being treated with Unasyn 3 gm IV q6h. The patient has no MRSA or Vanco history here at [facility]. We'll load her with 2 grams and follow with 750 mg IV q8h. Pharmacy will continue to monitor and make adjustments as needed. RODY TENA PHARMACY November 19, 2019 11:18
--- NOTE | 2019-11-19 11:31 | IPNPDOC ---
Date Seen The patient was seen on 11/19/19. Progress Note SUBJECTIVE: Patient seen and examined at the bedside this AM. She looks uncomfortable and is complaining of abdominal and vaginal pain. She is quite tachypneic. She states she has no appetite but does not feel nauseous. She states she does not feel she is urinating much and continues to have vaginal discharge and bleeding. OBJECTIVE PHYSICAL EXAMINATION: VITAL SIGNS: Please see below. GENERAL APPEARANCE: Laying in bed, appears stated age, appears somewhat in distress, tachypneic, calm, cooperative HEENT: EOMI, PERRLA, neck is supple with no thyromegaly or lymphadenopathy RESPIRATORY: shallow breathing, somewhat decreased breath sounds at bases bilaterally, no other adventitious breath sounds appreciated CARDIOVASCULAR: no JVD, tachycardic, no murmurs/rubs/gallops, normal S1 and S2 ABDOMEN: very tender to palpation in all 4 contracts EXTREMITIES: trace edema in lower extremities bilaterally NEUROLOGICAL: CN 2-12 intact, No obvious focal deficits PSYCHIATRIC: normal mood/affect Skin: No rashes or ulcers appreciated, warm and well-perfused LN: No significant cervical or inguinal lymphadenopathy LABORATORY DATA, IMAGING STUDIES, MICROBIOLOGY: Please see below. Echocardiogram: pending DVT prophylaxis ordered?: Lovenox ASSESSMENT AND PLAN: This is a 34 YO F [address] days [address] Dr[address] Wilson's office for abdominal pain, fevers, chills, vaginal bleeding and foul smelling vaginal discharge on empiric antibiotics for concern for endometritis vs UTI found to have hypoglycemia and gram positive cocci on blood cultures. PROBLEMS: 1. Sepsis 2/2 endometritis vs UTI -Lactic acid trended down from 5.3 to 1.8 -Continue IVF D5/NS 100cc/hr -Blood cultures preliminary growth gram positive cocci in chains -Repeat blood cultures pending -Continue empiric Unasyn and Vancomycin -Pending MRSA screen -Urine culture positive for Streptococcus Pyogenes group A -Will trend coags to r/o DIC. Fibrinogen has normalized at this point 2. ? cardiomyopathy: may explain worsening renal function and transaminitis -BNP elevated at >1600 -Small pericardial effusion noted on CTA -Echocardiogram pending -Continue telemetry 3. Pleural effusions: Likely 2/2 hypoalbuminemia -Will be cautious with fluid resuscitation 4. FRANKI: -Cr elevated at 1.33 this morning. Could be prerenal, will continue to trend 5. Hypoglycemia: likely 2/2 infection -hypoglycemic protocol in place 6. Electrolyte abnormalities: -Hypokalemia at 3.1, replaced this AM -Hypomagnesemia, replaced this AM 7.Transaminitis: -RUQ ultrasound negative DISPOSITION: pending clinical improvement Attending attestation: I evaluated and examined the patient in person; I discussed the care with Resident in detail and agree with the plan above. VS, I&O, 24H, Fishbone Vital Signs/I&O Vital Signs Date Time Temp Pulse Resp B/P (MAP) Pulse Ox O2 Delivery O2 Flow Rate FiO2 11/19/19 08:00 98.1 118 22 147/80 (102) 97 Room Air I&O- Last 24 Hours up to 6 AM 11/19/19 06:00 Intake Total 3270 ml Output Total 450 ml Balance 2820 ml Laboratory Data 24H LABS Laboratory Tests 2 11/18/19 11:19: Urine Color (BJ) ORANGEH, Urine Appearance (BJ) CLOUDYH, Urine pH (BJ) 5.0, Urine Specific [place] (BJ) 1.028, Bedside Urine Glucose (UA) NEGATIVE, Bedside Urine Ketones (LAB) OBSCUREDH, Bedside Urine Blood POSITIVEH, Bedside Urine Nitrite (LAB) OBSCUREDH, Bedside Urine Bilirubin (LAB) OBSCUREDH, Bedside Urine Urobilinogen (LAB) OBSCUREDH, Bedside Urine Leukocyte Esterase (L POSITIVEH, Urine Sediment Examination PERFORMED, Urine RBC 15-20H, Urine WBC 20-30H, Urine Squamous Epithelial Cells SMALL AMOUNT, Urine Transitional Epithelial Cells SMALL AMOUNTH, Urine Renal Epithelial Cells LARGE AMOUNTH, Urine Uric Acid Crystals SMALL AMOUNTH, Urine Amorphous Sediment SMALL AMOUNTH, Urine Bacteria MOD AMOUNTH, Urine Hyaline Casts 0-1, Urine Granular Casts 3-5H 11/18/19 14:27: Lactic Acid Followup at 4 Hours 5.3*H 11/18/19 17:58: Urine Squamous Epithelial Cells 3, Urine Amorphous Sediment SMALLH, Urine Color GUY, Urine Appearance HAZY, Urine pH 6.0, Urine Specific [place] 1.051, Urine Protein 2+H, Urine Glucose (UA) NEGATIVE, Urine Ketones NEGATIVE, Urine Blood 3+H, Urine Nitrite NEGATIVE, Urine Bilirubin NEGATIVE, Urine Urobilinogen 2.0H, Urine Leukocyte Esterase 2+H, Urine WBC (Auto) 115H, Urine RBC (Auto) TNTCH, Urine Hyaline Casts (Auto) 0, Urine Bacteria (Auto) 1+H, Urine Sperm (Auto) 11/18/19 20:37: Bedside Glucose (Misc Panel) 26*L 11/18/19 20:52: Bedside Glucose (Misc Panel) 35*L 11/18/19 21:01: Lactic Acid Level 1.8 11/18/19 21:05: Neutrophils (%) (Auto) , Nucleated Red Blood Cells % (auto) 0.0, Neutrophils 71H, Band Neutrophils 23H, Lymphocytes (Manual) 5L, Metamyelocytes 1H, Dohle Bodies 1+, Toxic Vacuolation 1+, Platelet Estimate DECREASED, Prothrombin Time 1 8.8H, Prothromb Time International Ratio 1.60, Fibrinogen 539H, D-Dimer, Quantitative > 4000H, Anion Gap 10, Glomerular Filtration Rate 57.1L, Calcium Level 7.6#L, Phosphorus Level 3.3, Magnesium Level 1.4L, Total Bilirubin 2.4H, Aspartate Amino Transf (AST/SGOT) 52H, Alanine Aminotransferase (ALT/SGPT) 27, Alkaline Phosphatase 135H, Troponin I < 0.02, QB-Goc-U-Type Natriuretic Peptide 1686H, Total Protein 4.3L, Albumin 1.6#L, Albumin/Globulin Ratio 0.59L, B- Hydroxybutyrate 8.19H 11/18/19 21:09: Bedside Glucose (Misc Panel) 139H 11/18/19 21:43: Bedside Glucose (Misc Panel) 94 11/18/19 22:06: Bedside Glucose (Misc Panel) 99 11/18/19 23:57: Bedside Glucose (Misc Panel) 90 11/19/19 01:04: Bedside Glucose (Misc Panel) 103 11/19/19 04:06: Bedside Glucose (Misc Panel) 103 11/19/19 04:44: Neutrophils (%) (Auto) , Nucleated Red Blood Cells % (auto) 0.0, Neutrophils 89H, Band Neutrophils 4, Lymphocytes (Manual) 4L, Monocytes (Manual) 1, Metamyelocytes 2H, Red Blood Cell Morphology NORMAL, Dohle Bodies 1+, Platelet Estimate NORMAL, Anion Gap 9, Glomerular Filtration Rate 49.2L, Calcium Level 7.4L, Total Bilirubin 2.6H, Aspartate Amino Transf (AST/SGOT) 47H, Alanine Aminotransferase (ALT/SGPT) 26, Alkaline Phosphatase 142H, Total Protein 4.2L, Albumin 1.6L, Albumin/Globulin Ratio 0.62L 11/19/19 08:33: Prothrombin Time 16.5H, Prothromb Time International Ratio 1.36, Fibrinogen 424, Magnesium Level 1.9 11/19/19 10:15: 11/19/19 10:21: Bedside Glucose (Misc Panel) 94 CBC/BMP Laboratory Tests 11/18/19 21:05 11/19/19 04:44 Microbiology Microbiology 11/19/19 Blood Culture, Received Pending 11/19/19 Blood Culture, Received Pending 11/18/19 Urine Culture, Received Pending 11/18/19 Urine Culture - Preliminary, Resulted Streptococcus Pyogenes Grp A 11/18/19 Blood Culture, Received Pending 11/18/19 Blood Culture - Preliminary, Resulted GME ATTESTATION GME ATTESTATION My faculty preceptor for this patient encounter was physically present during the encounter and was fully available. All aspects of the patient interview, examination, medical decision making process, and medical care plan development were reviewed and approved by the faculty preceptor. The faculty preceptor is aware and concurs with the plan as stated in the body of this note and will attest to such by his/her cosignature. LUCIANO BOSWELL MD November 19, 2019 11:31 GRECIA VALDEZ MD November 24, 2019 19:01
[2019-11-19] MEDS ORDERED: POTASSIUM CHLORIDE 10% LIQ 20 MEQ/15 ML UDC PO ONE (12:00)
[2019-11-19] MEDS: AMPICILLIN SOD/SULBACTAM SOD 3 GM in D5W MINI-BAG PLUS 100 ML IV SCH ×3 (12:15→23:46)
[2019-11-19 14:29] LABS: BLOOD UREA NITROGEN 23 MG/DL (7-18); CALCIUM LEVEL 7.9 MG/DL (8.5-10.1); CARBON DIOXIDE LEVEL 18 MEQ/L (21-32); CHLORIDE LEVEL 110 MEQ/L (98-107); CREATININE FOR GFR 1.05 MG/DL (0.55-1.30); GLOMERULAR FILTRATION RATE > 60.0 (>60); GLUCOSE, FASTING 97 MG/DL (70-100); MAGNESIUM LEVEL 2.2 MG/DL (1.8-2.4); PHOSPHORUS LEVEL 3.1 MG/DL (2.5-4.9); POTASSIUM SERUM 3.3 MEQ/L (3.5-5.1); SODIUM LEVEL 137 MEQ/L (136-145)
[2019-11-19] MEDS: VANCOMYCIN HCL 750 MG, VIAL MATE ADAPTER 1 EACH in D5W 250 ML IV SCH (16:46)
--- NOTE | 2019-11-19 19:14 | ECGEPIP ---
[facility] Test Date: 2019-11-18 Pat Name: OMER WILSON Department: Room: [place] [address] Gender: Female Manager Mission: [place] : [id number] Requested By: TREVOR HANKINS Order Number: [id number] Reading MD: Hadley Encinas Measurements Intervals [place] Rate: 144 P: 57 GA: 116 QRS: 28 QRSD: 90 T: 12 QT: 294 QTc: 455 Interpretive Statements SINUS TACHYCARDIA ABNORMAL RHYTHM ECG SIMILAR TO 11:42 SAME DAY Electronically Signed on 11-19-2019 19:14:29 EDT by Hadley Encinas
--- NOTE | 2019-11-19 20:17 | REP ---
Esophagram The procedure was performed under the direct supervision of Dr. Delcid. The images were reviewed with Dr. Delcid. A single view PA chest x-ray is submitted as a cyber reverse engineer film. The superior mediastinal structures are midline. The heart size is within normal limits. There are mild bibasilar infiltrate/atelectasis. Liquid barium and gas producing granules were given in the erect position as well as liquid barium in the prone oblique positions in order to perform a double contrast esophagram examination. Exam is limited as the patient was unable to lie flat on the table. The oral and pharyngeal stages of deglutition are unremarkable. Esophageal transport is prompt and efficient and there is no esophagitis, stricture or mucosal ring. There is a sliding type hiatal hernia. There is gastroesophageal reflux demonstrated to above the level of the joaquina. Impression: There is a sliding type hiatal hernia. There is gastroesophageal reflux demonstrated to above the level of the joaquina. 0.8 minutes of fluoro time was utilized for this procedure. Electronically Signed by JUAN Victoria 11/19/2019 04:47 P Electronically Signed by Tuan Delcid MD 11/19/2019 08:08 P
[2019-11-19 20:34] LABS: URIC ACID 5.3 MG/DL (2.6-6.0)
[2019-11-19] MEDS: ENOXAPARIN 40MG/0.4ML SYRINGE (J1650 PER 10MG) SC SCH (21:38)
--- NOTE | 2019-11-19 22:28 | ECHO ---
DATE OF PROCEDURE: 11/19/2019 REFERRING PHYSICIAN: Dr. Donnie Wilson and Dr. Eulalia Fernandes INDICATION: Tachycardia. Height 180 cm, weight 108 kg. DIMENSIONS: IVS: 1.1 LV: 4.5 LVPW: 1.1 LA: 3.8 Aorta: 2.8 Mitral E wave velocity: 60 Mitral A wave velocity: 75 FINDINGS: The study is of rather poor technical quality with difficult visualization. Apparently the patient could not lie flat for the exam, and it was principally a sitting exam. The patient was quite tachycardic, underlying sinus tachycardia with ventricular rate approximately 120 beats per minute. Left ventricle is of normal size. It is grossly preserved left ventricular systolic function even though in setting of prominent tachycardia it is somewhat difficult to tipple engineer. There appears to be subtle septal wall motion abnormality. Right ventricle was poorly seen. Based on very limited views, it appears dilated and probably somewhat hypokinetic. Left atrium appears normal. Right atrium was not well visualized. Based on limited views, it appears normal. Aortic, mitral and tricuspid valves appear normal. Pulmonic valve was not well seen. There is small pericardial effusion principally posterior located from the heart. Inferior vena cava was not seen. Aortic root is normal. Aortic arch and abdominal aorta were not well visualized. Doppler interrogation reveals no significant aortic, mitral, tricuspid valvular disease. Mitral inflow pattern reveals grade 1 diastolic dysfunction. Tissue Doppler velocities of mitral annulus were not performed. CONCLUSIONS: 1. Study is of very limited technical quality, the patient is in sinus tachycardia with heart rate around 120 beats per minute. 2. Normal left ventricular (LV) size with grossly preserved LV systolic function, cannot rule out subtle septal wall motion abnormality. 3. Right ventricle appears dilated. 4. Normal mitral, aortic and tricuspid valves. 5. Unable to estimate central venous pressure and pulmonary artery pressure. 6. Small pericardial effusion. COMMENT: This study does not provide obvious explanation to the patient's tachycardia. If the patient is very symptomatic, certainly further evaluation needs to be entertained. MTDD
[2019-11-20] VITALS: BP 143/90
[2019-11-20] MEDS: VANCOMYCIN HCL 750 MG, VIAL MATE ADAPTER 1 EACH in D5W 250 ML IV SCH ×3 (00:51→17:14)
[2019-11-20 04:00] VITALS: BP_SYST 133; BP_SYST 135; BP_DIAS 72; BP_DIAS 90
[2019-11-20 05:15] LABS: HEMATOCRIT 33.2 % (36.0-47.0); HEMOGLOBIN 11.1 g/dl (12.0-15.5); MEAN CORPUSCULAR HEMOGLOBIN 29.1 pg (27.0-33.0); MEAN CORPUSCULAR HGB CONC 33.4 g/dl (32.0-36.5); MEAN CORPUSCULAR VOLUME 87.1 fl (80.0-96.0); PLATELET COUNT, AUTOMATED 135 10^3/uL (150-450); RED BLOOD COUNT 3.81 10^6/uL (4.00-5.40)
[2019-11-20 05:25] LABS: INR 1.15; PROTHROMBIN TIME 14.4 SECONDS (11.8-14.0)
[2019-11-20] MEDS: AMPICILLIN SOD/SULBACTAM SOD 3 GM in D5W MINI-BAG PLUS 100 ML IV SCH ×4 (05:25→23:52)
[2019-11-20 05:36] LABS: ALT/SGPT 24 U/L (12-78); CREATININE FOR GFR 1.02 MG/DL (0.55-1.30); GLOMERULAR FILTRATION RATE > 60.0 (>60); LDH LACTATE DEHYDROGENASE 211 U/L (84-246); URIC ACID 5.6 MG/DL (2.6-6.0)
[2019-11-20 05:38] LABS: ALBUMIN 1.4 GM/DL (3.2-5.2); ALT/SGPT 22 U/L (12-78); BILIRUBIN,DIRECT 2.1 MG/DL (0.0-0.2); BILIRUBIN,TOTAL 2.8 MG/DL (0.2-1.0); BLOOD UREA NITROGEN 22 MG/DL (7-18); CALCIUM LEVEL 7.9 MG/DL (8.5-10.1); CARBON DIOXIDE LEVEL 20 MEQ/L (21-32); CHLORIDE LEVEL 112 MEQ/L (98-107); GLOMERULAR FILTRATION RATE > 60.0 (>60); GLUCOSE, FASTING 72 MG/DL (70-100); POTASSIUM SERUM 3.7 MEQ/L (3.5-5.1); SODIUM LEVEL 139 MEQ/L (136-145); TOTAL PROTEIN 4.7 GM/DL (6.4-8.2)
[2019-11-20 06:38] LABS: LYMPHOCYTES 6 % (16-44); MONOCYTES 1 % (0-5); NEUTROPHILS 93 % (28-66)
[2019-11-20 06:39] LABS: PLATELET ESTIMATE NORMAL (NORMAL)
[2019-11-20 08:00] VITALS: BP 139/92
[2019-11-20] MEDS ORDERED: POTASSIUM CHLORIDE 10 MEQ SR TABLET PO ONE (08:00)
[2019-11-20] MEDS ORDERED: ISOVUE-370 76% 100ML VIAL As Ordered ONE (09:00)
[2019-11-20] MEDS: PANTOPRAZOLE 40MG VIAL (C9113 PER 1) IV SCH (09:08)
[2019-11-20] MEDS: ACETAMINOPHEN TAB 650MG DOSE (2X325MG) PO PRN ×3 (09:08→12:57)
[2019-11-20] MEDS: MORPHINE 2 MG/ML 1ML VIAL (J2270) IV PRN ×4 (09:09→20:10)
[2019-11-20 09:52] LABS: HEPATITIS B SURFACE ANTIGEN NEGATIVE (NEGATIVE)
--- NOTE | 2019-11-20 09:59 | IPNPDOC ---
Date Seen The patient was seen on 11/20/19. Progress Note SUBJECTIVE: Patient seen and examined at the bedside this AM. She states her pain in her belly has not improved and she is unable to lay flat due to discomfort. Pain is out of proportion. Will order repeat CT abd/pelvis. She states the pain is cramping and sharp in nature. She received pain medications last night which did not help much. She is no longer having vaginal discharge and her vaginal bleeding is very scant at this point. She was able to tolerate some clear liquids and denies any nausea/vomiting or diarrhea. She has no headaches/lightheadedness or dizziness. Her breathing is somewhat better. OBJECTIVE PHYSICAL EXAMINATION: VITAL SIGNS: Please see below. GENERAL APPEARANCE: Laying in bed, appears stated age, appears somewhat in distress, tachypneic, calm, cooperative HEENT: EOMI, PERRLA, neck is supple with no thyromegaly or lymphadenopathy RESPIRATORY: shallow breathing, somewhat decreased breath sounds at bases bilaterally, no other adventitious breath sounds appreciated CARDIOVASCULAR: no JVD, tachycardic, no murmurs/rubs/gallops, normal S1 and S2 ABDOMEN: exquisetely tender to palpation in all 4 quadrants EXTREMITIES: trace edema in lower extremities bilaterally NEUROLOGICAL: CN 2-12 intact, No obvious focal deficits PSYCHIATRIC: normal mood/affect Skin: No rashes or ulcers appreciated, warm and well-perfused LN: No significant cervical or inguinal lymphadenopathy LABORATORY DATA, IMAGING STUDIES, MICROBIOLOGY: Please see below. CT ANGIO CHEST: IMPRESSION: 1. Small bilateral pleural effusions. Small pericardial effusion. Partially visualized abdominal ascites. 2. Small hiatal hernia. Gastroesophageal wall thickening, correlate with esophagram. 3. Suboptimal pulmonary artery contrast concentration for pulmonary emboli evaluation. No main or segmental central pulmonary emboli. Nondiagnostic for more peripheral pulmonary branches. ABDOMINAL US: IMPRESSION: Suspect a small amount of sludge in the gallbladder. No gallstones seen. There is mild gallbladder wall thickening. No intrahepatic or extrahepatic biliary dilatation. No liver mass. Tiny amount of subhepatic free fluid. Small right effusion. Echocardiogram: CONCLUSIONS: 1. Study is of very limited technical quality, the patient is in sinus tachycardia with heart rate around 120 beats per minute. 2. Normal left ventricular (LV) size with grossly preserved LV systolic function, cannot rule out subtle septal wall motion abnormality. 3. Right ventricle appears dilated. 4. Normal mitral, aortic and tricuspid valves. 5. Unable to estimate central venous pressure and pulmonary artery pressure. 6. Small pericardial effusion. DVT prophylaxis ordered?: Lovenox ASSESSMENT AND PLAN: This is a 34 YO F [address] days [address] from Dr[address] Wilson's office for abdominal pain, fevers, chills, vaginal bleeding and foul smelling vaginal discharge on empiric antibiotics for concern for endometritis vs UTI found to have hypoglycemia and preliminary result of gram positive cocci on blood cultures. PROBLEMS: 1. Sepsis 2/2 endometritis vs UTI -Lactic acid trended down from 5.3 to 1.8 -IV fluids stopped 2/2 pleural effusions -Blood cultures preliminary growth gram positive cocci in chains x1. May be contaminant. Patient does have history of + BC with Staph hominis on last hospitalization determined to be contaminant -Repeat blood cultures pending -Continue empiric Unasyn and Vancomycin -MRSA screen negative. Will continue Vancomycin for now pending blood culture results -Urine culture positive for Streptococcus Pyogenes group A -Will trend coags to r/o DIC. Fibrinogen has normalized at this point -Pre-Eclampsia profile negative 2. ? cardiomyopathy: -BNP elevated at >1600 -Small pericardial effusion noted on CTA -Echocardiogram demonstrates dilated R ventricle. May represent cardiomyopathy. Will discuss with Ce -Continue continuous telemetry -tachycardia likely 2/2 pain 3. Pleural effusions: Likely 2/2 hypoalbuminemia -IV fluids stopped. No oxygen requirement 4. FRANKI: -Appears to have resolved. Cr 1.02 today 5. Hypoglycemia: likely 2/2 infection vs decreased intake -hypoglycemic protocol in place 6. Electrolyte abnormalities: -Hypokalemia at 3.7, replaced this AM -Magnesium WNL 7.Transaminitis: likely 2/2 fatty liver of . -RUQ ultrasound negative DISPOSITION: pending clinical improvement Attending attestation: I evaluated and examined the patient in person; I discussed the care with Resident in detail and agree with the plan above. VS, I&O, 24H, Fishbone Vital Signs/I&O Vital Signs Date Time Temp Pulse Resp B/P (MAP) Pulse Ox O2 Delivery O2 Flow Rate FiO2 11/20/19 09:09 16 11/20/19 08:00 97.5 125 139/92 (108) 99 Room Air I&O- Last 24 Hours up to 6 AM 11/20/19 06:00 Intake Total 3171 ml Output Total 950 ml Balance 2221 ml Laboratory Data 24H LABS Laboratory Tests 2 11/19/19 10:15: Coronavirus (COVID-19)(PCR) NEGATIVE, Methicillin-Resist S.aureus DNA PCR NOT DETECTED 11/19/19 10:21: Bedside Glucose (Misc Panel) 94 11/19/19 12:28: Bedside Glucose (Misc Panel) 115H 11/19/19 13:45: Anion Gap 9, Glomerular Filtration Rate > 60.0, Uric Acid 5.3, Calcium Level 7.9L, Phosphorus Level 3.1, Magnesium Level 2.2 11/19/19 16:51: Bedside Glucose (Misc Panel) 83 11/19/19 21:20: Bedside Glucose (Misc Panel) 80 11/19/19 23:50: Bedside Glucose (Misc Panel) 80 11/20/19 04:46: Neutrophils (%) (Auto) , Nucleated Red Blood Cells % (auto) 0.0, Neutrophils 93H, Lymphocytes (Manual) 6L, Monocytes (Manual) 1, Red Blood Cell Morphology NORMAL, Platelet Estimate NORMAL, Prothrombin Time 14.4H, Prothromb Time International Ratio 1.15, Fibrinogen 502H, Anion Gap 7L, Glomerular Filtration Rate > 60.0, Uric Acid 5.6, Calcium Level 7.9L, Magnesium Level 2.0, Total Bilirubin 3.0H, Direct Bilirubin 2.1H, Aspartate Amino Transf (AST/SGOT) 29, Alanine Aminotransferase (ALT/SGPT) 24, Alkaline Phosphatase 194H, Lactate Dehydrogenase 211, Total Protein 4.7L, Albumin 1.4L, Albumin/Globulin Ratio 0.42L 11/20/19 08:06: Vancomycin Level Trough 15.9 11/20/19 09:19: Bedside Glucose (Misc Panel) 62L CBC/BMP Laboratory Tests 11/19/19 13:45 11/20/19 04:46 Microbiology Microbiology 11/19/19 Blood Culture, Received Pending 11/19/19 Blood Culture - Preliminary, Resulted No growth after 24 hours . All specim... 11/18/19 Urine Culture - Final, Complete 11/18/19 Urine Culture - Final, Complete Streptococcus Pyogenes Grp A 11/18/19 Blood Culture - Preliminary, Resulted No growth after 24 hours . All specim... 11/18/19 Blood Culture - Preliminary, Resulted GME ATTESTATION GME ATTESTATION My faculty preceptor for this patient encounter was physically present during the encounter and was fully available. All aspects of the patient interview, examination, medical decision making process, and medical care plan development were reviewed and approved by the faculty preceptor. The faculty preceptor is aware and concurs with the plan as stated in the body of this note and will attest to such by his/her cosignature. LUCIANO BOSWELL MD November 20, 2019 09:59 GRECIA VALDEZ MD November 24, 2019 19:16
[2019-11-20 10:20] LABS: HEPATITIS B CORE ANTIBODY IGM NEGATIVE (NEGATIVE)
[2019-11-20] MEDS ORDERED: FUROSEMIDE 40MG/4ML VIAL (J1940) IV ONE (10:30)
[2019-11-20 10:42] LABS: HEPATITIS A ANTIBODY IGM NEGATIVE (NEGATIVE)
--- NOTE | 2019-11-20 11:18 | REP ---
CT ABDOMEN AND PELVIS WITH IV CONTRAST: TECHNIQUE: Axial contrast enhanced images from the lung bases to the pubic symphysis using 100 mL Isovue-370 intravenous contrast material with multiplanar reformations. COMPARISON: CT chest 11/19/[address] abdomen and pelvis 11/18/2019. In the visualized lung bases, there are again small bilateral pleural effusions with patchy bibasilar atelectasis/infiltrate. These findings are essentially unchanged. The liver, spleen, adrenals, pancreas, and kidneys appear unremarkable. The study is somewhat limited due to barium and small bowel loops in the mid abdomen from the esophagram of 11/19/2019. There is no evidence of small bowel obstruction. There is mild increase in the mild abdominal and pelvic ascites when compared to the prior study of 11/18/2019. Uterus is again noted to be enlarged compatible with post gravid state. Ovaries appear unremarkable. Urinary bladder is mildly distended. IMPRESSION: No change in bibasilar infiltrates and effusions in the visualized lung bases. There is mildly increased abdominal and pelvic ascites, which is again relatively mild in severity. Electronically Signed by Tuan Delcid MD 11/20/2019 12:49 P
[2019-11-20 12:00] VITALS: BP 134/97
[2019-11-20] MEDS ORDERED: SLF 3 ML SYR IV PRN (14:00)
[2019-11-20] MEDS: SLF 3 ML SYR IV SCH ×2 (14:09→21:18)
[2019-11-20 16:00] VITALS: BP 143/103
[2019-11-20 20:00] VITALS: BP 140/70
[2019-11-20] MEDS: ENOXAPARIN 40MG/0.4ML SYRINGE (J1650 PER 10MG) SC SCH (20:09)
[2019-11-20] MEDS: PERCOCET 5MG/325MG TAB PO PRN (22:09)
[2019-11-21] VITALS: BP 158/88
[2019-11-21] MEDS: VANCOMYCIN HCL 750 MG, VIAL MATE ADAPTER 1 EACH in D5W 250 ML IV SCH (01:05)
[2019-11-21] MEDS: MORPHINE 2 MG/ML 1ML VIAL (J2270) IV PRN ×3 (03:08→21:37)
[2019-11-21 04:00] VITALS: BP 138/94
[2019-11-21] MEDS: PERCOCET 5MG/325MG TAB PO PRN ×2 (04:22→13:25)
[2019-11-21] MEDS: ACETAMINOPHEN TAB 650MG DOSE (2X325MG) PO PRN (04:22)
--- NOTE | 2019-11-21 04:37 | HPE ---
DATE OF ADMISSION: 11/18/2019 Ronel is a 34-year-old female who is 3 days after a vaginal delivery. She presented to the office today with complaints of severe abdominal pain and not feeling well with a temperature that started approximately a day ago and not responding to Motrin. Upon evaluation in the office, she was found to be in significant abdominal pain with a temperature of 102. At this point, she was sent to the emergency room for further evaluation. After an evaluation in the emergency room, a decision was made to admit the patient and to treat her for presumptive endometritis. However, given her significant abdominal pain and temperature and the finding on CT scan, patient will be admitted for further evaluation. Upon admission, she denies any cough. No chest pain. She denies any shortness of breath, although on physical exam, she does appear to be labored breathing. No vomiting. Her lochia is minimal. The patient had a similar episode during her and was admitted to the hospital for several days with labile temperatures and upper respiratory symptoms. PAST MEDICAL HISTORY: Denies. SOCIAL HISTORY: She denies any alcohol, drug, or cigarette smoking. FAMILY HISTORY: Significant for diabetes. Her full emergency room (ER) record reviewed as well as the CT scan that was in the emergency room. CT scan shows mild bilateral pleural effusions, small amount of ascites in the abdomen with an enlarged uterus. On ultrasound, the uterus appeared to have a thickened endometrium, which could necessarily be postdelivery changes as well as small retained products. No adnexal mass noted. On PHYSICAL EXAMINATION: HEENT: Was grossly within normal limits. Her abdomen was mildly distended with mild decreased bowel sounds. Some rebound tenderness, involuntary guarding. Extremities: No clubbing, cyanosis. +1 to +2 lower extremity edema. Deep tendon reflex (DTR) 2/4 bilaterally. ER lab reviewed. She had mildly elevated LFTs. Some electrolyte abnormalities, low potassium and chloride. Platelets were within normal limits. No significant white count. ASSESSMENT: 3 days with severe abdominal pain and temperature. Cannot rule out endometritis versus another infective process. Urine culture, blood culture pending. Patient will be admitted, started on Unasyn 3 grams every 6 hours, pending cultures. Given her electrolyte abnormalities, we will consider a hospitalist consultation. Patient will be closely monitored.
[2019-11-21] MEDS: CALCIUM CARBONATE 500 MG CHEW U/D PO PRN ×3 (05:15→18:02)
[2019-11-21] MEDS: AMPICILLIN SOD/SULBACTAM SOD 3 GM in D5W MINI-BAG PLUS 100 ML IV SCH (05:16)
[2019-11-21] MEDS: SLF 3 ML SYR IV SCH ×3 (05:21→21:37)
[2019-11-21 08:00] VITALS: BP 148/94
[2019-11-21 08:14] LABS: HEMATOCRIT 31.2 % (36.0-47.0); HEMOGLOBIN 10.3 g/dl (12.0-15.5); MEAN CORPUSCULAR HEMOGLOBIN 28.8 pg (27.0-33.0); MEAN CORPUSCULAR VOLUME 87.2 fl (80.0-96.0); PLATELET COUNT, AUTOMATED 117 10^3/uL (150-450); RED BLOOD COUNT 3.58 10^6/uL (4.00-5.40); WHITE BLOOD COUNT 16.6 10^3/uL (4.0-10.0)
[2019-11-21] MEDS ORDERED: cefTRIAXone SOD 2 GM VIAL (J0696 PER 250MG) IM SCH (08:30)
[2019-11-21 08:43] LABS: BLOOD UREA NITROGEN 22 MG/DL (7-18); CALCIUM LEVEL 7.5 MG/DL (8.5-10.1); CARBON DIOXIDE LEVEL 20 MEQ/L (21-32); CHLORIDE LEVEL 107 MEQ/L (98-107); CREATININE FOR GFR 1.09 MG/DL (0.55-1.30); GLOMERULAR FILTRATION RATE > 60.0 (>60); GLUCOSE, FASTING 83 MG/DL (70-100); POTASSIUM SERUM 3.4 MEQ/L (3.5-5.1); SODIUM LEVEL 137 MEQ/L (136-145)
[2019-11-21 08:44] LABS: LYMPHOCYTES 5 % (16-44); MONOCYTES 2 % (0-5); NEUTROPHILS 93 % (28-66); PLATELET ESTIMATE DECREASED (NORMAL)
[2019-11-21] MEDS: cefTRIAXone SOD 2 GM in D5W MINI-BAG PLUS 50 ML IV SCH (08:57)
[2019-11-21] MEDS: PANTOPRAZOLE 40MG VIAL (C9113 PER 1) IV SCH (08:57)
[2019-11-21] MEDS ORDERED: POTASSIUM CHLORIDE 10 MEQ SR TABLET PO ONE (10:00)
[2019-11-21] MEDS ORDERED: FUROSEMIDE 40MG/4ML VIAL (J1940) IV ONE (10:00)
--- NOTE | 2019-11-21 10:49 | IPNPDOC ---
Date Seen The patient was seen on 11/21/19. Progress Note SUBJECTIVE: Patient seen and examined at the bedside this AM. She has more energy today and the pain in her belly has improved. She is still somewhat tachycardic especially when she gets up and moves around. Her appetite is better. She is no longer having any vaginal discharge. She does complain of some reflux symptoms when she eats meals. OBJECTIVE PHYSICAL EXAMINATION: VITAL SIGNS: Please see below. GENERAL APPEARANCE: Laying in bed, appears stated age, calm, cooperative HEENT: EOMI, PERRLA, neck is supple with no thyromegaly or lymphadenopathy RESPIRATORY: clear to auscultation bilaterally, no other adventitious breath sounds appreciated CARDIOVASCULAR: no JVD, tachycardic, no murmurs/rubs/gallops, normal S1 and S2 ABDOMEN: tender to deep palpation in LUQ and LLQ,+BS, no masses, no organomegaly EXTREMITIES: trace edema in lower extremities bilaterally NEUROLOGICAL: CN 2-12 intact, No obvious focal deficits PSYCHIATRIC: normal mood/affect Skin: No rashes or ulcers appreciated, warm and well-perfused LN: No significant cervical or inguinal lymphadenopathy LABORATORY DATA, IMAGING STUDIES, MICROBIOLOGY: Please see below. CT ABDOMEN AND PELVIS WITH IV CONTRAST: TECHNIQUE: Axial contrast enhanced images from the lung bases to the pubic symphysis using 100 mL Isovue-370 intravenous contrast material with multiplanar reformations. COMPARISON: CT chest 11/19/[address] abdomen and pelvis 11/18/2019. In the visualized lung bases, there are again small bilateral pleural effusions with patchy bibasilar atelectasis/infiltrate. These findings are essentially unchanged. The liver, spleen, adrenals, pancreas, and kidneys appear unremarkable. The study is somewhat limited due to barium and small bowel loops in the mid abdomen from the esophagram of 11/19/2019. There is no evidence of small bowel obstruction. There is mild increase in the mild abdominal and pelvic ascites when compared to the prior study of 11/18/2019. Uterus is again noted to be enlarged compatible with post gravid state. Ovaries appear unremarkable. Urinary bladder is mildly distended. IMPRESSION: No change in bibasilar infiltrates and effusions in the visualized lung bases. There is mildly increased abdominal and pelvic ascites, which is again relatively mild in severity. Echocardiogram: CONCLUSIONS: 1. Study is of very limited technical quality, the patient is in sinus tachycardia with heart rate around 120 beats per minute. 2. Normal left ventricular (LV) size with grossly preserved LV systolic function, cannot rule out subtle septal wall motion abnormality. 3. Right ventricle appears dilated. 4. Normal mitral, aortic and tricuspid valves. 5. Unable to estimate central venous pressure and pulmonary artery pressure. 6. Small pericardial effusion. DVT prophylaxis ordered?: Lovenox ASSESSMENT AND PLAN: This is a 34 YO F 3 days [address] presented from Dr. Wilson's office for abdominal pain, fevers, chills, vaginal bleeding and foul smelling vaginal discharge on empiric antibiotics for concern for endometritis vs UTI found to have hypoglycemia and preliminary result of gram positive cocci on blood cultures. PROBLEMS: 1. Sepsis 2/2 endometritis vs UTI -Lactic acid trended down from 5.3 to 1.8 -1st set Blood cx growth of Strep Pyogenes Group A. Abx switched to IV Rocephin -Urine culture positive for Streptococcus Pyogenes group A -DIC and Pre-Eclampsia profile negative 2. Dilated R ventricle on Echo, concerning for fluid overload: -BNP elevated at >1600 -Small pericardial effusion noted on CTA -IV lasix 40mg x 2 doses with good UOP. Breathing is improving 3. Pleural effusions: Likely 2/2 hypoalbuminemia -IV fluids stopped. No oxygen requirement 4. FRANKI: -Appears to have resolved. Cr 1.09 today 5. Hypoglycemia: likely 2/2 infection vs decreased intake -hypoglycemic protocol in place 6. Electrolyte abnormalities: -Hypokalemia at 3.4, replaced this AM 7.Transaminitis: likely 2/2 fatty liver of . -RUQ ultrasound negative DISPOSITION: pending clinical improvement Attending attestation: I evaluated and examined the patient in person; I discussed the care with Resident in detail and agree with the plan above. VS, I&O, 24H, Fishbone Vital Signs/I&O Vital Signs Date Time Temp Pulse Resp B/P (MAP) Pulse Ox O2 Delivery O2 Flow Rate FiO2 11/21/19 08:59 16 Room Air 11/21/19 08:00 98.1 114 148/94 (112) 97 I&O- Last 24 Hours up to 6 AM 11/21/19 06:00 Intake Total 3083 ml Output Total 2775 ml Balance 308 ml Laboratory Data 24H LABS Laboratory Tests 2 11/20/19 11:46: Bedside Glucose (Misc Panel) 104 11/20/19 16:21: Bedside Glucose (Misc Panel) 68L 11/21/19 07:58: Neutrophils (%) (Auto) , Nucleated Red Blood Cells % (auto) 0.0, Neutrophils 93H, Lymphocytes (Manual) 5L, Monocytes (Manual) 2, Red Blood Cell Morphology NORMAL, Platelet Estimate DECREASED, Anion Gap 10, Glomerular Filtration Rate > 60.0, Calcium Level 7.5L, Vancomycin Level Trough 13.7 CBC/BMP Laboratory Tests 11/21/19 07:58 Microbiology Microbiology 11/19/19 Blood Culture - Preliminary, Resulted No Growth after 48 hours. All Specime... 11/19/19 Blood Culture - Preliminary, Resulted No Growth after 48 hours. All Specime... 11/18/19 Urine Culture - Final, Complete 11/18/19 Urine Culture - Final, Complete Streptococcus Pyogenes Grp A 11/18/19 Blood Culture - Preliminary, Resulted No Growth after 48 hours. All Specime... 11/18/19 Blood Culture - Final, Complete Streptococcus Pyogenes Grp A GME ATTESTATION GME ATTESTATION My faculty preceptor for this patient encounter was physically present during the encounter and was fully available. All aspects of the patient interview, examination, medical decision making process, and medical care plan development were reviewed and approved by the faculty preceptor. The faculty preceptor is aware and concurs with the plan as stated in the body of this note and will attest to such by his/her cosignature. LUCIANO BOSWELL MD November 21, 2019 10:49 GRECIA VALDEZ MD November 24, 2019 19:32
[2019-11-21] MEDS: SUCRALFATE 1 GM TAB PO SCH ×2 (11:36→17:54)
[2019-11-21 12:00] VITALS: BP 164/92
[2019-11-21] MEDS ORDERED: SWI IV ONE (12:00)
[2019-11-21] MEDS ORDERED: POTASSIUM CHLORIDE IV ONE (12:00)
[2019-11-21] MEDS ORDERED: LIDOCAINE 1% IV ONE ×2 (12:00)
[2019-11-21] MEDS ORDERED: D5W IV ONE ×2 (12:00)
[2019-11-21] MEDS ORDERED: KCL IV ONE (12:00)
[2019-11-21 16:00] VITALS: BP 138/80
[2019-11-21 20:00] VITALS: BP 137/89
[2019-11-21] MEDS: ENOXAPARIN 40MG/0.4ML SYRINGE (J1650 PER 10MG) SC SCH (21:36)
[2019-11-22] VITALS: BP 143/97
[2019-11-22] MEDS: ACETAMINOPHEN TAB 650MG DOSE (2X325MG) PO PRN ×2 (00:13→21:01)
[2019-11-22 04:00] VITALS: BP 139/88
[2019-11-22 05:15] LABS: BASO % 0.2 % (0.0-1.0); EOS # 0.1 10^3/uL (0.0-0.5); EOS % 0.3 % (0.0-3.0); HEMATOCRIT 30.6 % (36.0-47.0); HEMOGLOBIN 10.3 g/dl (12.0-15.5); LYMPH # 1.2 10^3/uL (1.5-5.0); LYMPH % 6.9 % (24.0-44.0); MEAN CORPUSCULAR HEMOGLOBIN 29.3 pg (27.0-33.0); MEAN CORPUSCULAR HGB CONC 33.7 g/dl (32.0-36.5); MEAN CORPUSCULAR VOLUME 87.2 fl (80.0-96.0); MONO # 1.3 10^3/uL (0.0-0.8); MONO % 7.2 % (0.0-5.0); NEUTROPHILS # 14.2 10^3/uL (1.5-8.5); NEUTROPHILS % 80.4 % (36.0-66.0); PLATELET COUNT, AUTOMATED 133 10^3/uL (150-450); RED BLOOD COUNT 3.51 10^6/uL (4.00-5.40); WHITE BLOOD COUNT 17.6 10^3/uL (4.0-10.0)
[2019-11-22 05:39] LABS: CALCIUM LEVEL 7.4 MG/DL (8.5-10.1); CREATININE FOR GFR 1.21 MG/DL (0.55-1.30); GLOMERULAR FILTRATION RATE 54.9 (>60); POTASSIUM SERUM 3.5 MEQ/L (3.5-5.1)
[2019-11-22] MEDS: SLF 3 ML SYR IV SCH ×3 (06:43→21:01)
[2019-11-22] MEDS: PERCOCET 5MG/325MG TAB PO PRN ×4 (06:43→22:18)
[2019-11-22 07:05] VITALS: BP 168/98
[2019-11-22 07:31] LABS: C REACTIVE PROTEIN QUANTITATIV 16.2 MG/DL (0.00-0.30)
[2019-11-22] MEDS ORDERED: POTASSIUM CHLORIDE 10 MEQ SR TABLET PO ONE (08:00)
[2019-11-22] MEDS: SUCRALFATE 1 GM TAB PO SCH ×3 (08:53→17:51)
[2019-11-22] MEDS: PANTOPRAZOLE 40MG VIAL (C9113 PER 1) IV SCH ×2 (08:53→21:00)
[2019-11-22] MEDS: cefTRIAXone SOD 2 GM in D5W MINI-BAG PLUS 50 ML IV SCH (08:54)
--- NOTE | 2019-11-22 09:16 | IPNPDOC ---
Progress Note Date of Service: November 22, 2019 Day#: 6 Progress Note SUBJECT: [Ronel ] is a [34]-year-old, status post uncomplicated spontaneous vaginal delivery at term was discharged from the hospital and re-admitted on day # 3 with severe abdominal pain, and elevated temp with t-max of 102. She was admitted with a presumptive diagnosis of endometritis; however on the day of hospitalization she was severely tachycardic with significant electrolyte abnormalities and hypoglycemia. hospitalist consult was called and patient was transferred to PCU by Hospitalist on their service. She was kept on abx with cultures pending and for repeat studies.Her final blood and urine cultures were negative. She was Afebrile for over 72 hours on current abdx with minimal to no lochia. However last night pt had a low grade temp of 100.7 and dark brown vaginal bleeding. Her Pain has mildly improved. I evaluated her this morning with the RN in room. Pt counseled extensively. OBJECTIVE: VITAL SIGNS: Within normal limits, afebrile. T-max 100.7 in the last 72 hrs Alert and oriented times three. Abdomen: Fundus firm at U-2. Soft, Significant decrease pain to palpation in lower abdomen [Minimal] lochia. Dark brown. No significant odor. Cultures done ASSESSMENT: 34 y/o female, status post uncomplicated spontaneous vaginal delivery after presenting in active labor with spontaneous rupture of membranes (SROM), delivered precipitously; day [6] re-admitted on PP day #3 with temp and pain- endometritis vs sepsis on IV abx. So far negative cultures. Vitals within normal limits, afebrile at this time, and hemodynamically stable. PLAN: 1. Given her recent spike in temp ( though low grade) agreed with repeat blood cultures. vaginal cultures sent. repeat Ultrasound of the pelvis ordered to further evaluate her uterus and pelvis.Given her current exam, i am doubtful her endometritis is worsening or she is in need of a D&C. I discussed that in great details with pt and her significant other. 2. continue Tylenol and Motrin for pain. 3. I will follow ultrasound and repeat culture 4. Given her CT findings and her slow recovery consider medical office asst consult- Need to be determine by hospitalist team. 5. Thanks for co-managing Ronel and the daily updates. VS, I&O, 24H, Fishbone Vital Signs/I&O Vital Signs Date Time Temp Pulse Resp B/P (MAP) Pulse Ox O2 Delivery O2 Flow Rate FiO2 11/22/19 07:05 99.0 112 18 168/98 (121) 98 Room Air I&O- Last 24 Hours up to 6 AM0 11/22/19 06:00 Intake Total 565.5 ml Output Total 1250 ml Balance -684.5 ml Laboratory Data 24H LABS Laboratory Tests 2 11/22/19 04:51: Immature Granulocyte % (Auto) 5.0H, Neutrophils (%) (Auto) 80.4H, Lymphocytes (%) (Auto) 6.9L, Monocytes (%) (Auto) 7.2H, Eosinophils (%) (Auto) 0.3, Basophils (%) (Auto) 0.2, Neutrophils # (Auto) 14.2H, Lymphocytes # (Auto) 1.2L, Monocytes # (Auto) 1.3H, Eosinophils # (Auto) 0.1, Basophils # (Auto) 0.0, Nucleated Red Blood Cells % (auto) 0.0, Anion Gap 11, Glomerular Filtration Rate 54.9L, Calcium Level 7.4L, C-Reactive Protein, Quantitative 16.20H CBC/BMP Laboratory Tests 11/22/19 04:51 Microbiology Microbiology 11/19/19 Blood Culture - Preliminary, Resulted No Growth after 48 hours. All Specime... 11/19/19 Blood Culture - Preliminary, Resulted No Growth after 48 hours. All Specime... 11/18/19 Urine Culture - Final, Complete 11/18/19 Urine Culture - Final, Complete Streptococcus Pyogenes Grp A 11/18/19 Blood Culture - Preliminary, Resulted No Growth after 72 hours. All specime... 11/18/19 Blood Culture - Final, Complete Streptococcus Pyogenes Grp A Donnie Wilson DO November 22, 2019 09:16
[2019-11-22] MEDS ORDERED: FUROSEMIDE 40MG/4ML VIAL (J1940) IV ONE (10:00)
[2019-11-22 12:00] VITALS: BP 150/100
--- NOTE | 2019-11-22 13:16 | REP ---
REASON: Followup endometrial thickening. Patient is . Comparison 11/18/2019 showed an 8 cm thick hypervascular heterogeneous endometrial echocomplex. Today's examination was performed transvesically only. The uterus measures 17.6 x 9.9 x 10.4 cm. Once again, there is heterogeneous thickening of the endometrial echo complex which today measures 5.4 cm. The degree of hypervascularity is essentially unchanged. Numerable tiny echogenic foci are now seen in the endometrial echo complex possibly with subtle acoustic shadowing. There is a mild amount of free fluid in the pelvis. The ovaries are essentially unchanged in size, shape, and echopattern. They are both within normal limits. Urinary bladder measurements are 10 x 7 x 9 cm. IMPRESSION: Once again, there is an abnormally thickened heterogenous somewhat hypervascular endometrial echocomplex, as described above. Tiny echogenic foci could indicate new air densities possibly reflecting endometritis. This needs to be correlated clinically with close followup. There is a moderate amount of free fluid in the pelvis. Electronically Signed by Bonifacio Davila DO 11/22/2019 01:31 P
--- NOTE | 2019-11-22 13:43 | IPNPDOC ---
Date Seen The patient was seen on 11/22/19. Progress Note SUBJECTIVE: Patient seen and examined at the bedside this AM. She is having difficulty with reflux, which is making it difficult for her to eat regular meals. Mylanta did not help her reflux symptoms. Otherwise, she is feeling better. She had a vaginal exam this morning done by Dr. Wilson and pelvic US ordered. Her abdomen is much less tender. She is still somewhat tachycardic. She urinated almost 1.5L yesterday with IV lasix. Otherwise, no other complaints. OBJECTIVE PHYSICAL EXAMINATION: VITAL SIGNS: Please see below. GENERAL APPEARANCE: Laying in bed, appears stated age, calm, cooperative HEENT: EOMI, PERRLA, neck is supple with no thyromegaly or lymphadenopathy RESPIRATORY: clear to auscultation bilaterally, no other adventitious breath sounds appreciated CARDIOVASCULAR: no JVD, tachycardic, no murmurs/rubs/gallops, normal S1 and S2 ABDOMEN: tender to deep palpation in LUQ and LLQ,+BS, no masses, no organomegaly EXTREMITIES: trace edema in lower extremities bilaterally NEUROLOGICAL: CN 2-12 intact, No obvious focal deficits PSYCHIATRIC: normal mood/affect Skin: No rashes or ulcers appreciated, warm and well-perfused LN: No significant cervical or inguinal lymphadenopathy LABORATORY DATA, IMAGING STUDIES, MICROBIOLOGY: Please see below. DVT prophylaxis ordered?: Lovenox ASSESSMENT AND PLAN: This is a 34 YO F [address] days [address] presented from Dr[address] Wilson's office for abdominal pain, fevers, chills, vaginal bleeding and foul smelling vaginal discharge on empiric antibiotics for concern for sepsis in setting of possible endometritis. The patient has been on IV antibiotics with only 1 positive blood culture with possible contaminant. PROBLEMS: 1. Sepsis 2/2 endometritis vs bacteremia -1st set Blood cx growth of Strep Pyogenes Group A. Most likely a contaminant. Abx switched to IV Rocephin -Repeat blood cultures ordered for today, as patient had fever of 100.7 overnight and WBC elevated at 17.6. Will broaden antibiotic coverage if needed -Urine culture positive for Streptococcus Pyogenes group A -Vaginal cultures and repeat pelvic US ordered for today -DIC and Pre-Eclampsia profile negative 2. Dilated R ventricle on Echo, concerning for fluid overload: -BNP elevated at >1600 -Small pericardial effusion noted on CTA -IV lasix 40mg x 3 doses with good UOP. Breathing is improving 3. Pleural effusions: Likely 2/2 hypoalbuminemia -IV fluids stopped. No oxygen requirement 4. FRANKI: -Appears to have resolved. Cr 1.09 today 5. Hypoglycemia: likely 2/2 infection vs decreased intake -hypoglycemic protocol in place 6. Persistent hypokalemia: This was apparent on previous hospitalization. Patient will need to be referred to Nephrology in outpatient setting for further workup -Urine spot K ordered -Hypokalemia at 3.5, replaced this AM. Could be 2/2 Lasix as well 7.Transaminitis: likely 2/2 fatty liver of . -RUQ ultrasound negative DISPOSITION: pending clinical improvement Attending attestation: I evaluated and examined the patient in person; I discussed the care with Resident in detail and agree with the plan above. VS, I&O, 24H, Fishbone Vital Signs/I&O Vital Signs Date Time Temp Pulse Resp B/P (MAP) Pulse Ox O2 Delivery O2 Flow Rate FiO2 11/22/19 07:13 16 11/22/19 07:05 99.0 112 168/98 (121) 98 Room Air I&O- Last 24 Hours up to 6 AM 11/22/19 06:00 Intake Total 565.5 ml Output Total 1250 ml Balance -684.5 ml Laboratory Data 24H LABS Laboratory Tests 2 11/22/19 04:51: Immature Granulocyte % (Auto) 5.0H, Neutrophils (%) (Auto) 80.4H, Lymphocytes (%) (Auto) 6.9L, Monocytes (%) (Auto) 7.2H, Eosinophils (%) (Auto) 0.3, Basophils (%) (Auto) 0.2, Neutrophils # (Auto) 14.2H, Lymphocytes # (Auto) 1.2L, Monocytes # (Auto) 1.3H, Eosinophils # (Auto) 0.1, Basophils # (Auto) 0.0, Nucleated Red Blood Cells % (auto) 0.0, Anion Gap 11, Glomerular Filtration Rate 54.9L, Calcium Level 7.4L, C-Reactive Protein, Quantitative 16.20H CBC/BMP Laboratory Tests 11/22/19 04:51 Microbiology Microbiology 11/22/19 Blood Culture, Received Pending 11/22/19 Blood Culture, Received Pending 11/22/19 Gram Stain - Final, Resulted 11/22/19 Genital Culture, Resulted Pending 11/19/19 Blood Culture - Preliminary, Resulted No Growth after 72 hours. All specime... 11/19/19 Blood Culture - Preliminary, Resulted No Growth after 72 hours. All specime... 11/18/19 Urine Culture - Final, Complete 11/18/19 Urine Culture - Final, Complete Streptococcus Pyogenes Grp A 11/18/19 Blood Culture - Preliminary, Resulted No Growth after 72 hours. All specime... 11/18/19 Blood Culture - Final, Complete Streptococcus Pyogenes Grp A GME ATTESTATION GME ATTESTATION My faculty preceptor for this patient encounter was physically present during the encounter and was fully available. All aspects of the patient interview, examination, medical decision making process, and medical care plan development were reviewed and approved by the faculty preceptor. The faculty preceptor is aware and concurs with the plan as stated in the body of this note and will attest to such by his/her cosignature. LUCIANO BOSWELL MD November 22, 2019 13:43 GRECIA VALDEZ MD November 24, 2019 19:51
[2019-11-22 16:00] VITALS: BP 142/93
[2019-11-22] MEDS: metroNIDAZOLE (FLAGYL) 500 MG TAB PO SCH ×2 (17:51→21:01)
[2019-11-22] MEDS: CALCIUM CARBONATE 500 MG CHEW U/D PO PRN (18:43)
[2019-11-22 20:00] VITALS: BP 130/87
[2019-11-22] MEDS: ENOXAPARIN 40MG/0.4ML SYRINGE (J1650 PER 10MG) SC SCH (21:00)
[2019-11-23] VITALS: BP 131/67
[2019-11-23 00:07] LABS: INSULIN LEVEL 3.1 uIU/mL (2.6-24.9)
[2019-11-23 04:00] VITALS: BP 118/71
[2019-11-23] MEDS: PERCOCET 5MG/325MG TAB PO PRN ×2 (04:35→21:31)
[2019-11-23] MEDS: metroNIDAZOLE (FLAGYL) 500 MG TAB PO SCH ×3 (05:11→21:30)
[2019-11-23] MEDS: SLF 3 ML SYR IV SCH ×3 (05:11→21:30)
[2019-11-23 05:16] LABS: HEMATOCRIT 33.3 % (36.0-47.0); HEMOGLOBIN 10.9 g/dl (12.0-15.5); MEAN CORPUSCULAR HEMOGLOBIN 28.8 pg (27.0-33.0); MEAN CORPUSCULAR HGB CONC 32.7 g/dl (32.0-36.5); MEAN CORPUSCULAR VOLUME 88.1 fl (80.0-96.0); RED BLOOD COUNT 3.78 10^6/uL (4.00-5.40); WHITE BLOOD COUNT 22.7 10^3/uL (4.0-10.0)
[2019-11-23 05:17] LABS: PLATELET COUNT, AUTOMATED 297 10^3/uL (150-450)
[2019-11-23 05:25] LABS: CALCIUM LEVEL 7.7 MG/DL (8.5-10.1); CREATININE FOR GFR 1.13 MG/DL (0.55-1.30); GLOMERULAR FILTRATION RATE 59.4 (>60); POTASSIUM SERUM 3.4 MEQ/L (3.5-5.1)
[2019-11-23 05:26] LABS: ANISOCYTOSIS 1+; LYMPHOCYTES 10 % (16-44); MONOCYTES 9 % (0-5); MYELOCYTES 2 % (0-0); NEUTROPHILS 77 % (28-66); PLATELET ESTIMATE NORMAL (NORMAL); POLYCHROMASIA 1+
[2019-11-23 07:49] VITALS: BP 168/93
[2019-11-23] MEDS: SUCRALFATE 1 GM TAB PO SCH ×3 (08:18→17:29)
[2019-11-23] MEDS ORDERED: POTASSIUM CHLORIDE 10 MEQ SR TABLET PO ONE (09:00)
[2019-11-23] MEDS: PANTOPRAZOLE 40MG VIAL (C9113 PER 1) IV SCH ×2 (10:07→21:30)
[2019-11-23] MEDS: cefTRIAXone SOD 2 GM in D5W MINI-BAG PLUS 50 ML IV SCH (10:07)
[2019-11-23] MEDS: SWI IV SCH ×2 (11:01→12:06)
[2019-11-23] MEDS: LIDOCAINE 1% IV SCH ×2 (11:01→12:06)
[2019-11-23] MEDS: KCL IV SCH ×2 (11:01→12:06)
--- NOTE | 2019-11-23 11:24 | IPNPDOC ---
Date Seen The patient was seen on 11/23/19. Progress Note SUBJECTIVE: Patient seen and examined at the bedside this AM. She is feeling better this morning. She is still somewhat tachycardic and had a fever of 100.9 overnight. Otherwise, she denies any shortness of breath, no abdominal pain, no nausea/vomiting. Her reflux symptoms have much improved. OBJECTIVE PHYSICAL EXAMINATION: VITAL SIGNS: Please see below. GENERAL APPEARANCE: Laying in bed, appears stated age, calm, cooperative HEENT: EOMI, PERRLA, neck is supple with no thyromegaly or lymphadenopathy RESPIRATORY: clear to auscultation bilaterally, no other adventitious breath sounds appreciated CARDIOVASCULAR: no JVD, tachycardic, no murmurs/rubs/gallops, normal S1 and S2 ABDOMEN: tender to deep palpation in LUQ and LLQ,+BS, no masses, no organomegaly EXTREMITIES: trace edema in lower extremities bilaterally NEUROLOGICAL: CN 2-12 intact, No obvious focal deficits PSYCHIATRIC: normal mood/affect Skin: No rashes or ulcers appreciated, warm and well-perfused LN: No significant cervical or inguinal lymphadenopathy LABORATORY DATA, IMAGING STUDIES, MICROBIOLOGY: Please see below. PELVIC US: REASON: Followup endometrial thickening. Patient is . Comparison 11/18/2019 showed an 8 cm thick hypervascular heterogeneous endometrial echocomplex. Today's examination was performed transvesically only. The uterus measures 17.6 x 9.9 x 10.4 cm. Once again, there is heterogeneous thickening of the endometrial echo complex which today measures 5.4 cm. The degree of hypervascularity is essentially unchanged. Numerable tiny echogenic foci are now seen in the endometrial echo complex possibly with subtle acoustic shadowing. There is a mild amount of free fluid in the pelvis. The ovaries are essentially unchanged in size, shape, and echopattern. They are both within normal limits. Urinary bladder measurements are 10 x 7 x 9 cm. IMPRESSION: Once again, there is an abnormally thickened heterogenous somewhat hypervascular endometrial echocomplex, as described above. Tiny echogenic foci could indicate new air densities possibly reflecting endometritis. This needs to be correlated clinically with close followup. There is a moderate amount of free fluid in the pelvis. DVT prophylaxis ordered?: Lovenox ASSESSMENT AND PLAN: This is a 34 YO F [address] days [address] presented from Dr[address] Wilson's office for abdominal pain, fevers, chills, vaginal bleeding and foul smelling vaginal discharge on empiric antibiotics for concern for sepsis in setting of possible endometritis. The patient has been on IV antibiotics with only 1 positive blood culture with possible contaminant of group A strep. PROBLEMS: 1. Sepsis 2/2 endometritis vs bacteremia -1st set Blood cx growth of Strep Pyogenes Group A. Most likely a contaminant. Abx switched to IV Rocephin, added Flagyl -Repeat blood cultures pending. Patient is still having fevers and white count trending up. Will broaden antibiotic coverage if needed -Procalcitonin ordered. CRP ordered for tomorrow AM -Urine culture positive for Streptococcus Pyogenes group A -Vaginal cultures and repeat pelvic US ordered for today. Nor organisms seen as of yet -DIC and Pre-Eclampsia profile negative 2. Dilated R ventricle on Echo, concerning for fluid overload: -BNP elevated at >1600 -Small pericardial effusion noted on CTA -IV lasix 40mg x 3 doses with good UOP. Breathing is improving. Will hold off on any further lasix at this time 3. Pleural effusions: Likely 2/2 hypoalbuminemia -IV fluids stopped. No oxygen requirement 4. FRANKI: -Appears to have resolved. Cr 1.13 today 5. Hypoglycemia: likely 2/2 infection vs decreased intake -hypoglycemic protocol in place 6. Persistent hypokalemia: This was apparent on previous hospitalization. Patient will need to be referred to Nephrology in outpatient setting for further workup -Urine spot K ordered, urine osmolality ordered. Will calculate transtubular pot assium gradient -Hypokalemia at 3.4, replaced this AM. Could be 2/2 Lasix as well 7.Transaminitis: likely 2/2 fatty liver of . -RUQ ultrasound negative DISPOSITION: pending clinical improvement Attending attestation: I evaluated and examined the patient in person; I discussed the care with Resident in detail and agree with the plan above. VS, I&O, 24H, Fishbone Vital Signs/I&O Vital Signs Date Time Temp Pulse Resp B/P (MAP) Pulse Ox O2 Delivery O2 Flow Rate FiO2 11/23/19 07:49 98.8 108 18 168/93 (118) 94 Room Air I&O- Last 24 Hours up to 6 AM 11/23/19 06:00 Intake Total 1680 ml Output Total 2150 ml Balance -470 ml Laboratory Data 24H LABS Laboratory Tests 2 11/23/19 04:35: Immature Granulocyte % (Auto) , Neutrophils (%) (Auto) , Nucleated Red Blood Cells % (auto) 0.0, Neutrophils 77H, Band Neutrophils 2, Lymphocytes (Manual) 10L, Monocytes (Manual) 9H, Myelocytes 2H, Polychromasia 1+, Anisocytosis 1+, Platelet Estimate NORMAL, Anion Gap 9, Glomerular Filtration Rate 59.4L, Calcium Level 7.7L 11/23/19 07:41: CBC/BMP Laboratory Tests 11/23/19 04:35 Microbiology Microbiology 11/22/19 Blood Culture - Preliminary, Resulted No growth after 24 hours . All specim... 11/22/19 Blood Culture - Preliminary, Resulted No growth after 24 hours . All specim... 11/22/19 Gram Stain - Final, Resulted 11/22/19 Genital Culture, Resulted Pending 11/19/19 Blood Culture - Preliminary, Resulted No Growth after 72 hours. All specime... 11/19/19 Blood Culture - Preliminary, Resulted No Growth after 72 hours. All specime... 11/18/19 Urine Culture - Final, Complete 11/18/19 Urine Culture - Final, Complete Streptococcus Pyogenes Grp A 11/18/19 Blood Culture - Preliminary, Resulted No Growth after 72 hours. All specime... 11/18/19 Blood Culture - Final, Complete Streptococcus Pyogenes Grp A GME ATTESTATION GME ATTESTATION My faculty preceptor for this patient encounter was physically present during the encounter and was fully available. All aspects of the patient interview, examination, medical decision making process, and medical care plan development were reviewed and approved by the faculty preceptor. The faculty preceptor is aware and concurs with the plan as stated in the body of this note and will attest to such by his/her cosignature. LUCIANO BOSWELL MD November 23, 2019 11:24 GRECIA VALDEZ MD November 24, 2019 19:53
[2019-11-23 12:00] VITALS: BP 142/92
[2019-11-23 12:26] LABS: ALBUMIN 1.7 GM/DL (3.2-5.2); BILIRUBIN,DIRECT 1.9 MG/DL (0.0-0.2); BILIRUBIN,TOTAL 2.4 MG/DL (0.2-1.0); THYROID STIMULATING HORMONE 1.65 uIU/ML (0.358-3.740); TOTAL PROTEIN 5.3 GM/DL (6.4-8.2)
[2019-11-23] MEDS: CALCIUM CARBONATE 500 MG CHEW U/D PO PRN (13:54)
[2019-11-23 16:00] VITALS: BP 130/78
[2019-11-23] MEDS: ACETAMINOPHEN TAB 650MG DOSE (2X325MG) PO PRN (16:10)
[2019-11-23 20:00] VITALS: BP 137/83
[2019-11-23] MEDS: ENOXAPARIN 40MG/0.4ML SYRINGE (J1650 PER 10MG) SC SCH (21:30)
[2019-11-24] VITALS: BP 130/81
[2019-11-24 04:00] VITALS: BP 144/71
[2019-11-24 04:45] LABS: HEMATOCRIT 28.6 % (36.0-47.0); HEMOGLOBIN 9.5 g/dl (12.0-15.5); MEAN CORPUSCULAR HEMOGLOBIN 29.5 pg (27.0-33.0); MEAN CORPUSCULAR HGB CONC 33.2 g/dl (32.0-36.5); MEAN CORPUSCULAR VOLUME 88.8 fl (80.0-96.0); PLATELET COUNT, AUTOMATED 316 10^3/uL (150-450); RED BLOOD COUNT 3.22 10^6/uL (4.00-5.40); WHITE BLOOD COUNT 15.8 10^3/uL (4.0-10.0)
[2019-11-24 05:05] LABS: BLOOD UREA NITROGEN 11 MG/DL (7-18); CALCIUM LEVEL 7.3 MG/DL (8.5-10.1); CARBON DIOXIDE LEVEL 26 MEQ/L (21-32); CHLORIDE LEVEL 104 MEQ/L (98-107); CREATININE FOR GFR 0.93 MG/DL (0.55-1.30); GLOMERULAR FILTRATION RATE > 60.0 (>60); GLUCOSE, FASTING 87 MG/DL (70-100); POTASSIUM SERUM 3.7 MEQ/L (3.5-5.1); SODIUM LEVEL 137 MEQ/L (136-145)
[2019-11-24 05:07] LABS: LYMPHOCYTES 10 % (16-44); MONOCYTES 5 % (0-5); NEUTROPHILS 84 % (28-66); PLATELET ESTIMATE NORMAL (NORMAL)
[2019-11-24 05:08] LABS: POLYCHROMASIA 1+
[2019-11-24] MEDS: ACETAMINOPHEN TAB 650MG DOSE (2X325MG) PO PRN (05:27)
[2019-11-24] MEDS: SLF 3 ML SYR IV SCH ×3 (05:27→21:06)
[2019-11-24] MEDS: metroNIDAZOLE (FLAGYL) 500 MG TAB PO SCH ×3 (05:27→21:06)
[2019-11-24 07:25] VITALS: BP 125/81
[2019-11-24] MEDS: SUCRALFATE 1 GM TAB PO SCH ×3 (07:37→17:16)
[2019-11-24 08:51] LABS: POTASSIUM RANDOM URINE 20.8 MEQ/L
[2019-11-24] MEDS: PANTOPRAZOLE 40MG VIAL (C9113 PER 1) IV SCH ×2 (08:56→21:05)
[2019-11-24] MEDS: cefTRIAXone SOD 2 GM in D5W MINI-BAG PLUS 50 ML IV SCH (08:56)
[2019-11-24 12:00] VITALS: BP 128/73
[2019-11-24 16:00] VITALS: BP 130/77
[2019-11-24 20:00] VITALS: BP 132/78
[2019-11-24] MEDS: ENOXAPARIN 40MG/0.4ML SYRINGE (J1650 PER 10MG) SC SCH (21:06)
[2019-11-25] VITALS: BP 140/92
[2019-11-25 04:00] VITALS: BP 136/90
[2019-11-25] MEDS: metroNIDAZOLE (FLAGYL) 500 MG TAB PO SCH (06:07)
[2019-11-25] MEDS: SLF 3 ML SYR IV SCH (06:08)
[2019-11-25] MEDS: SUCRALFATE 1 GM TAB PO SCH ×2 (07:48→12:00)
[2019-11-25 07:54] VITALS: BP 124/76
[2019-11-25 08:47] LABS: HEMATOCRIT 25.9 % (36.0-47.0); HEMOGLOBIN 8.6 g/dl (12.0-15.5); MEAN CORPUSCULAR HGB CONC 33.2 g/dl (32.0-36.5); MEAN CORPUSCULAR VOLUME 87.2 fl (80.0-96.0); PLATELET COUNT, AUTOMATED 465 10^3/uL (150-450); RED BLOOD COUNT 2.97 10^6/uL (4.00-5.40); WHITE BLOOD COUNT 17.3 10^3/uL (4.0-10.0)
[2019-11-25 09:24] LABS: BLOOD UREA NITROGEN 7 MG/DL (7-18); CALCIUM LEVEL 7.7 MG/DL (8.5-10.1); CARBON DIOXIDE LEVEL 24 MEQ/L (21-32); CHLORIDE LEVEL 105 MEQ/L (98-107); CREATININE FOR GFR 0.67 MG/DL (0.55-1.30); GLOMERULAR FILTRATION RATE > 60.0 (>60); GLUCOSE, FASTING 93 MG/DL (70-100); POTASSIUM SERUM 3.5 MEQ/L (3.5-5.1); SODIUM LEVEL 137 MEQ/L (136-145)
[2019-11-25] MEDS: PANTOPRAZOLE 40MG VIAL (C9113 PER 1) IV SCH (09:25)
[2019-11-25] MEDS: cefTRIAXone SOD 2 GM in D5W MINI-BAG PLUS 50 ML IV SCH (09:26)
[2019-11-25 11:36] VITALS: BP 137/88
--- NOTE | 2019-11-25 11:36 | IPNPDOC ---
Date Seen The patient was seen on 11/25/19. Progress Note THIS NOTE IN PLACE OF DISCHARGE SUMMARY: DISCHARGE DATE: 11/25/19 ATTENDING PHYSICIAN: [facility] INVOLVED: ANGELA (OBGYN) SUBJECTIVE: Patient seen and examined at the bedside this AM. She is feeling better this morning. No abdominal pain or back pain. She denies any vaginal discharge or dysuria symtoms. She is ready to be discharged home. OBJECTIVE PHYSICAL EXAMINATION: VITAL SIGNS: Please see below. GENERAL APPEARANCE: Laying in bed, appears stated age, calm, cooperative HEENT: EOMI, PERRLA, neck is supple with no thyromegaly or lymphadenopathy RESPIRATORY: clear to auscultation bilaterally, no other adventitious breath sounds appreciated CARDIOVASCULAR: no JVD, tachycardic, no murmurs/rubs/gallops, normal S1 and S2 ABDOMEN: soft, , nontender,+BS, no masses, no organomegaly EXTREMITIES: trace edema in lower extremities bilaterally NEUROLOGICAL: CN 2-12 intact, No obvious focal deficits PSYCHIATRIC: normal mood/affect Skin: No rashes or ulcers appreciated, warm and well-perfused LN: No significant cervical or inguinal lymphadenopathy LABORATORY DATA, IMAGING STUDIES, MICROBIOLOGY: Please see below. DVT prophylaxis ordered?: Lovenox ASSESSMENT AND PLAN: This is a 34 YO F [address] days [address] presented from Dr[address] Wilson's office for abdominal pain, fevers, chills, vaginal bleeding and foul smelling vaginal discharge on empiric antibiotics for concern for sepsis in setting of possible endometritis. The patient has been on IV antibiotics with on ly 1 positive blood culture with possible contaminant of group A strep. PROBLEMS: 1. Sepsis 2/2 endometritis vs bacteremia -1st set Blood cx growth of Strep Pyogenes Group A. Most likely a contaminant. Abx switched to IV Rocephin, added Flagyl -Repeat blood cultures negative -Vaginal culture positive for Group A strep -Procalcitonin and CRP trended down -Recommend dc on 2 days oral Augmentin to complete antibiotic course 2. Dilated R ventricle on Echo, concerning for fluid overload: -BNP elevated at >1600 -Small pericardial effusion noted on CTA -S/p Lasix. Patient appears euvolemic on exam today. 3. Pleural effusions: Likely 2/2 hypoalbuminemia -IV fluids stopped. No oxygen requirement. S/p lasix 4. FRANKI: -Appears to have resolved. Cr 1.13 today 5. Hypoglycemia: likely 2/2 infection vs decreased intake -hypoglycemic protocol in place -Appears to have resolved 6. Persistent hypokalemia: This was apparent on previous hospitalization. Patient will need to be referred to Nephrology in outpatient setting for further workup -Transtubular potassium gradient calculated at 3. 7.Transaminitis: likely 2/2 fatty liver of . -RUQ ultrasound negative DISPOSITION: Patient is medically stable and appropriate for discharge at this time with follow up with her OBGYN scheduled. Would recommend 2 days Augmentin. We will be signing off at this point in time. Thank you for this consultation. DISCHARGE PLAN: 1. FOLLOW UP WITH OBGYN AND PCP WITHIN 7 DAYS [address]ERR[address] IN PLACE FOR NEPHROLOGY Attending attestation: I evaluated and examined the patient in person; I discussed the care with Resident in detail and agree with the plan above. VS, I&O, 24H, Fishbone Vital Signs/I&O Vital Signs Date Time Temp Pulse Resp B/P (MAP) Pulse Ox O2 Delivery O2 Flow Rate FiO2 11/25/19 07:54 99.6 83 18 124/76 (92) 95 Room Air I&O- Last 24 Hours up to 6 AM 11/25/19 05:59 Intake Total 1440 ml Output Total 350 ml Balance 1090 ml Laboratory Data 24H LABS Laboratory Tests 2 11/25/19 08:29: Nucleated Red Blood Cells % (auto) 0.0, Anion Gap 8, Glomerular Filtration Rate > 60.0, Osmolality 271L, Calcium Level 7.7L CBC/BMP Laboratory Tests 11/25/19 08:29 Microbiology Microbiology 11/24/19 Gastrointestinal Tract Panel (PCR) - Final, Complete 11/22/19 Blood Culture - Preliminary, Resulted No Growth after 72 hours. All specime... 11/22/19 Blood Culture - Preliminary, Resulted No Growth after 72 hours. All specime... 11/22/19 Gram Stain - Final, Complete 11/22/19 Genital Culture - Final, Complete Streptococcus Pyogenes Grp A 11/19/19 Blood Culture - Final, Complete NO GROWTH AFTER 5 DAYS 11/19/19 Blood Culture - Final, Complete NO GROWTH AFTER 5 DAYS 11/18/19 Urine Culture - Final, Complete 11/18/19 Urine Culture - Final, Complete Streptococcus Pyogenes Grp A 11/18/19 Blood Culture - Final, Complete NO GROWTH AFTER 5 DAYS 11/18/19 Blood Culture - Final, Complete Streptococcus Pyogenes Grp A GME ATTESTATION GME ATTESTATION My faculty preceptor for this patient encounter was physically present during the encounter and was fully available. All aspects of the patient interview, examination, medical decision making process, and medical care plan development were reviewed and approved by the faculty preceptor. The faculty preceptor is aware and concurs with the plan as stated in the body of this note and will attest to such by his/her cosignature. LUCIANO BOSWELL MD November 25, 2019 11:36 GRECIA VALDEZ MD December 02, 2019 21:30
--- NOTE | 2019-11-25 11:42 | IPNPDOC ---
Date Seen The patient was seen on 11/25/19. 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 On the day of admission a hospitalist consult was called and pt was transferred to PCU. She had multiple electrolytes abnormalities and other finding on labs as well as other studies. On 11/21, I saw pt for a temp spike to 100.7 as well as some vaginal spotting. Repeat blood culture, US and vaginal cultures done on that day. Pt was on Po flagyl as well as IV rocephin. Over the weekend she has clinically improved after sever doses of lasix and continued abx. But she continues to have elevated WBC and now elevated platelets. OBJECTIVE PHYSICAL EXAMINATION: VITAL SIGNS: Please see below. GENERAL: [appears to be feeling better in chair in NAD] HEENT: [WNL] ABDOMINAL: [Soft with mild distention. No significant pain or rebound tenderness] EXTREMITIES: [No C/C. Edema almost resolved. DTR 2/4 B/L ] LABORATORY DATA, IMAGING STUDIES, MICROBIOLOGY: Please see below. Echocardiogram: . DVT prophylaxis ordered?: ASSESSMENT AND PLAN: This is a 34 y/o female admitted with endometristis rule out sepsis- Hospital days #7, PPD # 10- Improving on current ABX Vaginal culture positive for Group A Strep. Blood cultures negative PLAN: On my evaluation this morning and discussion with Dr. Abarca, she has improved significantly clinically. Her vaginal culture was positive for strep Group A, which is sensitive to her current Abx. Her blood culture and GI panel were negative. I counseled the patient significantly and reviewed her current labs and test findings. I rec if she is discharge today to return to my office on for a follow up and repeat CBC. She can be discharge on Keflex or ampicillin for 7 days. I also rec that she follow up with her PCP immediately. She mentioned she was told to follow up with nephrology and that appt will be scheduled by hospitalist. 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 VS, I&O, 24H, Fishbone Vital Signs/I&O Vital Signs Date Time Temp Pulse Resp B/P (MAP) Pulse Ox O2 Delivery O2 Flow Rate FiO2 11/25/19 07:54 99.6 83 18 124/76 (92) 95 Room Air I&O- Last 24 Hours up to 6 AM 11/25/19 06:00 Intake Total 1440 ml Output Total 350 ml Balance 1090 ml Laboratory Data 24H LABS Laboratory Tests 2 11/25/19 08:29: Nucleated Red Blood Cells % (auto) 0.0, Anion Gap 8, Glomerular Filtration Rate > 60.0, Osmolality 271L, Calcium Level 7.7L CBC/BMP Laboratory Tests 11/25/19 08:29 Microbiology Microbiology 11/24/19 Gastrointestinal Tract Panel (PCR) - Final, Complete 11/22/19 Blood Culture - Preliminary, Resulted No Growth after 72 hours. All specime... 11/22/19 Blood Culture - Preliminary, Resulted No Growth after 72 hours. All specime... 11/22/19 Gram Stain - Final, Complete 11/22/19 Genital Culture - Final, Complete Streptococcus Pyogenes Grp A 11/19/19 Blood Culture - Final, Complete NO GROWTH AFTER 5 DAYS 11/19/19 Blood Culture - Final, Complete NO GROWTH AFTER 5 DAYS 11/18/19 Urine Culture - Final, Complete 11/18/19 Urine Culture - Final, Complete Streptococcus Pyogenes Grp A 11/18/19 Blood Culture - Final, Complete NO GROWTH AFTER 5 DAYS 11/18/19 Blood Culture - Final, Complete Streptococcus Pyogenes Grp A Donnie Wilson DO November 25, 2019 11:42
[2019-11-25] MEDS ORDERED: AMOX875T2 PO (12:23)
== END 2019-11-25 14:46 | disposition home or self-care (01) | DRG 561 ==
LOC: M ED 09:30 → M ED INP 13:59 → ENRESERV 14:26 → M MS5PR 14:50 → M PCU 21:16
PROVIDERS: ADMIT Obstetrics & Gynecology; ATTEND Internal Medicine
DX: O98.53 Other viral diseases complicating the puerperium (principal); N17.9 Acute kidney failure, unspecified; J90 Pleural effusion, not elsewhere classified; I31.3 Pericardial effusion (noninflammatory); O86.12 Endometritis following delivery; O99.43 Diseases of the circulatory system complicating the puerperium; E88.09 Other disorders of plasma-protein metabolism, not elsewhere classified; K76.0 Fatty (change of) liver, not elsewhere classified; O99.815 Abnormal glucose complicating the puerperium; E87.6 Hypokalemia; O99.285 Endocrine, nutritional and metabolic diseases complicating the puerperium; O99.53 Diseases of the respiratory system complicating the puerperium; O26.63 Liver and biliary tract disorders in the puerperium

== ENCOUNTER → 2019-12-30 | Outpatient (REF) | payer BC ==
[~2019-12-30] MED LIST changes: +ACET-683 PO; +AMOX875T2 PO; +IBUP200T45 PO
[2019-12-30 19:13] LABS: APPEARANCE, URINE CLEAR (CLEAR); BACTERIA, URINE AUTO NEGATIVE (NEGATIVE); BILIRUBIN, URINE AUTO NEGATIVE (NEGATIVE); BLOOD, URINE BLOOD 2+ (NEGATIVE); COLOR, URINE YELLOW (YELLOW); GLUCOSE, URINE (UA) AUTO NEGATIVE (NEGATIVE); KETONE, URINE AUTO NEGATIVE (NEGATIVE); LEUKOCYTE ESTERASE, URINE AUTO NEGATIVE (NEGATIVE); NITRITE, URINE AUTO NEGATIVE (NEGATIVE); PROTEIN, URINE AUTO NEGATIVE (NEGATIVE); RBC, URINE AUTO 3 /HPF (0-3); SPECIFIC GRAVITY URINE AUTO 1.018 (1.002-1.035); SQUAMOUS EPITHELIAL CELL UR AU 2 /HPF (0-6); UROBILINOGEN, URINE AUTO 0.2 mg/dL (0.0-2.0); WBC, URINE AUTO 1 /HPF (0-3)
[2019-12-30 19:15] LABS: BASO # 0.1 10^3/uL (0.0-0.2); BASO % 1.1 % (0.0-1.0); EOS # 0.1 10^3/uL (0.0-0.5); EOS % 1.4 % (0.0-3.0); HEMATOCRIT 36.6 % (36.0-47.0); HEMOGLOBIN 11.8 g/dl (12.0-15.5); LYMPH # 1.9 10^3/uL (1.5-5.0); LYMPH % 26.8 % (24.0-44.0); MEAN CORPUSCULAR HGB CONC 32.2 g/dl (32.0-36.5); MEAN CORPUSCULAR VOLUME 89.9 fl (80.0-96.0); MONO # 0.5 10^3/uL (0.0-0.8); MONO % 6.9 % (0.0-5.0); NEUTROPHILS # 4.5 10^3/uL (1.5-8.5); NEUTROPHILS % 63.7 % (36.0-66.0); PLATELET COUNT, AUTOMATED 283 10^3/uL (150-450); RED BLOOD COUNT 4.07 10^6/uL (4.00-5.40); WHITE BLOOD COUNT 7.1 10^3/uL (4.0-10.0)
[2019-12-30 19:28] LABS: ALBUMIN 3.9 GM/DL (3.2-5.2); ALT/SGPT 24 U/L (12-78); BILIRUBIN,TOTAL 0.6 MG/DL (0.2-1.0); BLOOD UREA NITROGEN 18 MG/DL (7-18); C REACTIVE PROTEIN QUANTITATIV < 0.30 MG/DL (0.00-0.30); CALCIUM LEVEL 9.3 MG/DL (8.5-10.1); CARBON DIOXIDE LEVEL 29 MEQ/L (21-32); CHLORIDE LEVEL 107 MEQ/L (98-107); CREATININE FOR GFR 0.99 MG/DL (0.55-1.30); GLOMERULAR FILTRATION RATE > 60.0 (>60); GLUCOSE, FASTING 87 MG/DL (70-100); LDH LACTATE DEHYDROGENASE 163 U/L (84-246); POTASSIUM SERUM 4.4 MEQ/L (3.5-5.1); SODIUM LEVEL 138 MEQ/L (136-145); TOTAL PROTEIN 8.3 GM/DL (6.4-8.2)
[2019-12-30 19:40] LABS: ERYTHROCYTE SEDIMENTATION RATE 31 mm/hr (0-20)
== END ==
LOC: M SFHCLERA 14:41
PROVIDERS: ATTEND Family Medicine
DX: D72.829 Elevated white blood cell count, unspecified (principal); E87.6 Hypokalemia; R10.2 Pelvic and perineal pain

== ENCOUNTER → 2020-07-04 | Outpatient (CLI) | payer BC ==
[~2020-07-04] MED LIST changes: -PHEN-593 PO; +PHEN1TAB73 PO
--- NOTE | 2020-07-04 10:34 | REP ---
INDICATION: FOOT AND ANKLE PAIN COMPARISON: None. TECHNIQUE: AP, lateral, bilateral oblique views. FINDINGS: Generalized soft tissue swelling noted. No acute fracture or dislocation. Joint spaces and ankle mortise are intact. IMPRESSION: Swelling. No acute fracture or dislocation. <Electronically signed by Alberto Michael > 07/04/20 [id number]
--- NOTE | 2020-07-04 10:35 | REP ---
INDICATION: FOOT AND ANKLE PAIN COMPARISON: None. TECHNIQUE: AP, lateral, bilateral oblique views . FINDINGS: The osseous structures and joint spaces are intact and normal. There is no evidence for acute fracture or dislocation. Surrounding soft tissues are unremarkable. No subcutaneous emphysema or radiodense foreign body. IMPRESSION: . No acute fracture or dislocation. <Electronically signed by Alberto Michael > 07/04/20 1032
== END ==
LOC: M WUC 09:49
PROVIDERS: ATTEND Physician Assistant
DX: M25.572 Pain in left ankle and joints of left foot (principal)